=== PATIENT | male | born 1960 | race Caucasian/White ===

== ENCOUNTER 2022-07-05 14:33 | Emergency (ER) | payer OTHER, SELFPAY ==
[2022-07-05 14:46] VITALS: BP 183/85; PULSE 76; RESP 14; TEMP 36.6; O2SAT 98
[2022-07-05 17:07] VITALS: BP 173/85; PULSE 83; RESP 16; TEMP 36.3; O2SAT 100
--- NOTE | 2022-07-05 17:12 | ED.GENADULT ---
HPI - General Adult General Chief complaint: Skin/Abscess/Foreign Body Stated complaint: swallowed chicken bone, unable to eat or drink Time Seen by Provider: 07/05/22 16:41 Source: patient Mode of arrival: ambulatory Limitations: no limitations History of Present Illness HPI narrative: Patient 62 years old white male presents with inability to swallow food or fluid 2 hours prior to arrival to the emergency room, after eating chicken. Patient believes there is chicken/bone stuck in his lower esophagus. History of severe acid reflux, ran out of on resolved few days ago, history of food bolus obstruction years ago resolved after having EGD to pull it out. On arrival to the emergency room patient was able to keep fluids down but it does hurt at the epigastric area during swallowing. Related Data Allergies Allergy/AdvReac Type Severity Reaction Status Date / Time No Known Allergies Allergy Unverified 07/13/18 06:18 Review of Systems Review of Systems: All systems reviewed & are unremarkable except as noted in HPI and below Exam Narrative: General appearance: Well-developed, well-nourished Skin: Normal color Head: Normocephalic, nontraumatic Eyes: Clear conjunctiva ENT: Oropharynx normal, ears normal, nose normal Neck: Supple, nontender Chest and respiratory: Airway patent, no respiratory distress, no accessory muscle use Heart: Regular rate/rhythm Abdomen: Soft, nontender, no organomegaly, quiet bowel sounds Vascular: Normal peripheral pulses, normal capillary refill. Musculoskeletal: Normal range of motion, nontender back Neurologic: Alert and oriented ?3, BINDER OPERATOR is normal as tested, no gross motor deficit Course Reevaluation(s) Reevaluation #1: Patient is able to swallow fluids without any nausea or vomiting. Date: 07/05/22 Time: 17:30 Consultations Consultation #1: Dr. Torres Follow-up with Dr. Austin tomorrow Date: 07/05/22 Time: 17:16 Vital Signs Vital signs: Vital Signs Temperature 36.6 C 07/05/22 14:46 Pulse Rate 76 07/05/22 14:46 Respiratory Rate 14 07/05/22 14:46 Blood Pressure 183/85 H 07/05/22 14:46 Pulse Oximetry 98 07/05/22 14:46 Oxygen Delivery Room Air 07/05/22 14:46 Temperature 36.6 C 07/05/22 14:46 Pulse Rate 76 07/05/22 14:46 Respiratory Rate 14 07/05/22 14:46 Blood Pressure 183/85 H 07/05/22 14:46 Pulse Oximetry 98 07/05/22 14:46 Oxygen Delivery Room Air 07/05/22 14:46 Medical Decision Making Vital Signs Vital Signs: Vital Signs Temperature 36.6 C 07/05/22 14:46 Pulse Rate 76 07/05/22 14:46 Respiratory Rate 14 07/05/22 14:46 Blood Pressure 183/85 H 07/05/22 14:46 Pulse Oximetry 98 07/05/22 14:46 Oxygen Delivery Room Air 07/05/22 14:46 Temperature 36.6 C 07/05/22 14:46 Pulse Rate 76 07/05/22 14:46 Respiratory Rate 14 07/05/22 14:46 Blood Pressure 183/85 H 07/05/22 14:46 Pulse Oximetry 98 07/05/22 14:46 Oxygen Delivery Room Air 07/05/22 14:46 Discharge Plan Discharge Clinical Impression: Acute obstruction of esophagus Patient Disposition: Home, Self-Care Condition: Improved Instructions: Antibiotic Form, Esophageal Foreign Body (ED) Additional Instructions: Call Dr. Austin tomorrow for appointment Prescriptions: New omeprazole 40 mg capsule,delayed release(DR/EC) 40 mg PO DAILY Qty: 30 0RF Follow-up/Referrals: Mango Austin MD [Physician] - 07/05/22 5:28 pm Natalie,Kacy Kat MD [Primary Care Provider] -
[2022-07-05] MEDS: BELLADONNA ALK/PHENOB ELIX 10 ML, MAG HYDROX/ALUMINUM HYD/SIMETH 30 ML, LIDOCAINE HCL 2... PO (17:34)
--- NOTE | 2022-07-05 17:37 | PC.NURSE ---
meds given per order, pt able to swallow medication
[2022-07-05 17:38] VITALS: BP 165/77; PULSE 82; RESP 16; TEMP 36.3; O2SAT 100
== END 2022-07-05 17:56 | disposition home or self-care (01) ==
PROVIDERS: Emergency Provider Emergency Medicine; PCP Internal Medicine
DX: K22.2 Esophageal obstruction (principal)
CPT/HCPCS: 99283; A9270

== ENCOUNTER 2023-03-23 08:27 | Outpatient (CLI) | payer OTHER, SELFPAY | END 2023-03-23 08:28 | disposition home or self-care (01) | LOC: ANHSURGERY 08:31 | PROVIDERS: PCP Internal Medicine; Visit Provider Urology | DX: R97.20 Elevated prostate specific antigen [PSA] (principal); Z01.818 Encounter for other preprocedural examination | CPT/HCPCS: 87086 ==

== ENCOUNTER 2023-03-30 01:15 | Day surgery (SDC) | payer OTHER, SELFPAY ==
[2023-03-22 14:35] VITALS: BMI 33.9
--- NOTE | 2023-03-22 14:46 | PC.NURSE ---
Report to the Outpatient Waiting Room, entrance under the green pavilion located off [facility], at time 6:15 on date 03/30/23. Planned Procedure Time: 8:15. Time changes happen often and if your time is changed the preop area will call you the afternoon before. - You and your visitor will be asked to self-screen and do not enter if you have any COVID symptoms. - A mask is optional within the hospital at this time. Patients may have clear liquids (water, carbonated beverages, clear teas, apple juice) until 3 hours prior to surgery with a maximum of 20 ounces. - No food from midnight until time of surgery Take the following medications with a SIP of water the morning of surgery: METOPROLOL DO NOT STOP ANY OF YOUR OTHER PRESCRIPTION MEDICATIONS PRIOR TO SURGERY EXCEPT THE FOLLOWING Medications to discontinue per physician: VITAMINS/SUPPLEMENTS Date to take last dose: 03/26/23 Please no make-up, nail slovak, hairspray, perfume, deodorant, or body powder the day of surgery. No jewelry (including any body piercings) or valuables the day of surgery, leave them at home. Please take a shower or bath the night before, or the morning of, surgery with an antibacterial soap. Wear comfortable, loose fitting clothing. - Jewelry must be removed prior to entering the operating room. Rings and piercings that are not removed may be cut off. - The hospital will not accept responsibility for valuables. - Please leave all valuables, including medications, at home the day of surgery. If you are going home after surgery, a licensed dumpster driver must drive you home. - NO public transportation without another adult if you receive anesthesia. - We recommend that an adult stay with you for 24 hours following discharge. - We also recommend that you do not drive, make important decision, drink alcoholic beverages, or take any drugs that were not prescribed by your health care provider for at least 24 hours after your discharge time. Follow any additional instructions given to you from your surgeon. If you or anyone in your household have experienced Covid symptoms in the past week, please notify your surgeon or the nurse liaison at the phone number below for possible testing. Telephone instructions given to PT - FAVIO DEL VALLE and asked if any additional questions and then verbalized understanding. Patient advised to call surgeon office or pre surgery nurse liaison [phone] if any additional questions.
--- NOTE | 2023-03-29 09:18 | WPDANESEPPF ---
Anes - Initial Pre Proc Eval Procedure: Operation Date: 03/30/23 08:15 Proposed Procedures p Trans Rectal Ultrasound Guided Prostate Biopsy - Florencio Daniel MD Date/Time: 03/29/23 09:18 Surgeon: Florencio Daniel MD Pre Op Diagnosis: elevated PSA Patient Data Age: 63 Gender: M Height: 1.83 m Weight: 113.4 kg Allergies Allergy/AdvReac Type Severity Reaction Status Date / Time No Known Allergies Allergy Verified 03/30/23 07:23 Home Medications Medication Instructions Recorded Confirmed Type omeprazole 40 mg capsule,delayed 40 mg PO DAILY #30 caps 07/05/22 03/22/23 Rx release allopurinol 300 mg tablet 300 mg PO DAILY 03/22/23 03/22/23 History ergocalciferol (vitamin D2) 1,250 1,250 mcg PO WEEKLY 03/22/23 03/22/23 History mcg (50,000 unit) capsule lisinopril 10 mg tablet 10 mg PO BID 03/22/23 03/22/23 History metoprolol succinate 50 mg 25 mg PO DAILY 03/22/23 03/22/23 History tablet,extended release 24 hr simvastatin 40 mg tablet 40 mg PO DAILY 03/22/23 03/22/23 History tamsulosin 0.4 mg capsule 0.4 mg PO DAILY 03/22/23 03/22/23 History Patient hx anesthesia problems: none Family hx anesthesia problems: none Results Review: All pre-operative results and documents have been reviewed as part of the pre-operative evaluation. [facility] Past Medical History Medical History (Updated 03/29/23 @ 09:19 by Brian Cedillo DO) Asthma Hyperlipidemia Hypertension Surgical History Surgical History (Updated 03/29/23 @ 09:19 by Brian Cedillo DO) History of cervical spinal surgery C5-7 fusion, 02/2023 Social History Social History (Updated 03/30/23 @ 07:27 by Brian Cedillo DO) Smoking status: Never smoker Alcohol intake: current Drinks per week: 30 Alcohol use details: 6 beers/day Substance use: current Substance use type: marijuana Other substance usage details: EDIBLES Living arrangements: alone Spiritual care concerns: No Anes - Eval Final PreProcedure Day of Procedure 03/29/23 09:18 Patient weight: obese Heart: regular rate and rhythm Lungs: clear to auscultation Airway: Mallampati scale class III and special considerations poor extension (C5-7 fusion) Neurological: alert and oriented Last oral intake: >/= 8 hours ASA classification: III Emergent: no Anesthetic plan: proceed Anesthesia type and monitoring: general GIVS and standard monitoring Results Review: All pre-operative results and documents have been reviewed as part of the pre-operative evaluation. Informed Consent: The patient's anesthetic plan and its attendant risks and benefits were discussed with the patient/family/POA. Questions were solicited and answers provided to the satisfaction of the patient/family/POA.
[2023-03-30 07:17] VITALS: BP 142/70; PULSE 64; RESP 14; TEMP 36.8; O2SAT 99
[2023-03-30] MEDS: LACTATED RINGERS 1,000 ML 30 ML IV CONT (07:22)
--- NOTE | 2023-03-30 07:35 | WPDHPUPDATE1 ---
History and Physical Update Update Date/Time: 03/30/23 07:35 History and Physical has been reviewed, including an updated exam of the patient. There are NO changes in the patient's condition. Risks, benefits, and alternatives have been discussed and questions answered. Patient agrees to proceed with procedure. Proceed with Uronav us and prostate biopsy
[2023-03-30] MEDS: ceFAZolin 2 GM/D5W 50 ML 2 GM/50 ML BAG IVPB (08:44)
--- NOTE | 2023-03-30 09:06 | W.PM.PROC2 ---
Procedure Note - Detailed Date of Procedure 03/30/23 Pre-op Diagnosis elevated PSA Post-op Diagnosis Same Procedure Performed Uronav us and prostate biopsy Surgeon Florencio Daniel MD Anesthesia General Description of Procedure Patient was taken to the operative suite correctly identified. Once anesthesia was obtained was placed in decubitus position. Transrectal ultrasound probe was inserted the rectum. The MRI image had been fused with the ultrasound image. We located the region of interest took 3 cores from that. We then took 12 cores in a standard fashion. Patient tolerated procedure well without any complications and is taken recovery stable condition. He is to call for path results in a week if he has not heard from us. This can placed to taken of this patient. Please send a copy to my office Drains No Packing No Pathology Yes Complications No immediate complications Condition Stable Disposition PACU
[2023-03-30 09:16] VITALS: BP 126/75; PULSE 67; RESP 12; TEMP 36.2; O2SAT 100
[2023-03-30 09:30] VITALS: BP 125/67; PULSE 71; RESP 12; O2SAT 96
[2023-03-30 09:45] VITALS: BP 119/69; PULSE 61; RESP 12; O2SAT 99
[2023-03-30 09:46] VITALS: BP 125/73; PULSE 56; RESP 14
[2023-03-30 10:16] VITALS: BP 127/63; PULSE 57; RESP 16
== END 2023-03-30 10:29 | disposition home or self-care (01) ==
PROVIDERS: PCP Internal Medicine; Visit Provider Urology
PROC: (CPT 55700; principal; 2023-03-30 08:15)
DX: C61 Malignant neoplasm of prostate (principal); I10 Essential (primary) hypertension; E78.5 Hyperlipidemia, unspecified; Z98.1 Arthrodesis status; F12.90 Cannabis use, unspecified, uncomplicated; E66.9 Obesity, unspecified; Z68.31 Body mass index [BMI] 31.0-31.9, adult
CPT/HCPCS: 55700; 76872; 87086; G0416; J0690; J1100; J2250; J2405; J2704; J3010; J7120

== ENCOUNTER 2023-04-21 10:54 | Outpatient (CLI) | payer OTHER, SELFPAY ==
--- NOTE | ~2023-04-21 | PE_ITS ---
EXAMINATION: PET_PETPSMAST_PT DATE: 04/21/2023 13:21 INDICATION: Malignant neoplasm of prostate. TECHNIQUE: 8.753 mCi of piflufolastat F-18 was administered intravenously. Low dose computed tomograp hy (CT) images were acquired from the base of the brain to the proximal thighs for attenuation correc tion and anatomic localization. Automated exposure control was employed. Dose-length product (DLP) wa s 1030 mGy-cm. Positron emission tomography (PET) images were acquired in the same distribution. COMPARISON: None FINDINGS: Head/neck: There are no pathologically enlarged lymph nodes. There are changes of anterior fusion pro cedure in cervical spine. Chest: There is no pneumonia or pleural effusion. There is a moderate-sized sliding hiatal hernia. Th e heart size is normal. No pericardial effusion. There are coronary artery calcifications. There are no pathologically enlarged lymph nodes. Abdomen/pelvis/proximal thighs: There is diffuse hepatic steatosis. The gallbladder, spleen, pancreas , adrenal glands, and kidneys are normal. The prostate is normal in size. There is increased activity in the peripheral zone on the left with maximum SUV of 16.3. There is diverticulosis of the colon wi thout evidence of diverticulitis. There are no dilated loops of bowel. The appendix is normal. There are no pathologically enlarged lymph nodes. There is no free intraperitoneal fluid. There is a total right hip arthroplasty. 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 There is a benign bone island in left ilium. IMPRESSION: 1. Increased activity in the left peripheral zone of the prostate, consistent with primary malignancy . No evidence of metastatic disease. Reviewed, dictated and finalized at location A. IMPRESSION: 1. Increased activity in the left peripheral zone of the prostate, consistent w ith primary malignancy. No evidence of metastatic disease.
== END 2023-04-21 10:55 | disposition home or self-care (01) ==
PROVIDERS: PCP Internal Medicine; Visit Provider Urology
DX: C61 Malignant neoplasm of prostate (principal)
CPT/HCPCS: 78815; A9595

== ENCOUNTER 2023-06-08 09:24 | Observation (INO) | payer OTHER, SELFPAY ==
[2023-06-08] VITALS (10 sets, daily range): BP systolic 117–135; BP diastolic 59–99; PULSE 67–80; RESP 15–19; TEMP 36.8–38; O2SAT 97–100
--- NOTE | ~2023-06-08 | CT_ITS ---
EXAMINATION: CT abdomen pelvis w con DATE: 06/08/2023 10:59 INDICATION: Rectal pain and weakness TECHNIQUE: Computed tomography (CT) of the abdomen and pelvis was performed with 100 mL Omnipaque-350 intravenous contrast. Automated exposure control and iterative reconstruction technique were employe d. The dose-length product was 1349.18 mGy-cm. COMPARISON: None FINDINGS: Mild compressive atelectasis at the medial aspect bilateral lower lobes along the margins of a modera te-sized sliding-type hiatal hernia. Heart size is normal. No pericardial or pleural effusion. Diffus e hepatic steatosis. Gallbladder, spleen, pancreas, bilateral adrenal glands and kidneys are normal. Small bowel and appendix are normal. There are few scattered colonic diverticula without adjacent inf lammatory stranding to suggest diverticulitis. There are small metallic densities in the region of th e prostate most likely brachytherapy seeds or surgical clips related to prior prostatectomy. There is a region of hypoattenuation situated in the fat between the posterior margin of the prostate in the anterior wall of the rectum likely representing a hydrogel spacer tube replacement prior to radiation treatment of the prostate. There is mild wall thickening along the anterior wall of the rectum consi stent with proctitis along with new nonspecific stranding in the retroperitoneal fat surrounding the rectum and distal sigmoid colon. No free intraperitoneal gas or fluid. No pathologically enlarged abd ominal or pelvic lymphadenopathy. Horizontal band of mild skin thickening and stranding in the underl fátima subcutaneous fat of the left and right sides of the umbilicus which could be due to prior trauma or cellulitis of indeterminate etiology. No pathologically enlarged abdominal or pelvic lymphadenopa thy. Right total hip arthroplasty. 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 Mild to moderate ost eoarthritis at the left hip. IMPRESSION: 1. Mild proctitis with some surrounding inflammatory stranding in the retroperitoneal fat surrounding the rectum and distal sigmoid colon. Postoperative changes at the prostate and placement of a likely hydrogel spacer the fat between the prostate and rectum with placed prior to radiation therapy sugge sting the proctitis could be related to radiation treatment or infectious/inflammatory change seconda ry to the hydrogel placement. Correlate with clinical history. 2. Osteonecrosis at the left femoral head some collapse of the articular cortex. Reviewed, dictated and finalized at location A. IMPRESSION: 1. Mild proctitis with some surrounding inflammatory stranding in the retroperi toneal fat surrounding the rectum and distal sigmoid colon. Postoperative sofia es at the prostate and placement of a likely hydrogel spacer the fat between th e prostate and rectum with placed prior to radiation therapy suggesting the pro ctitis could be related to radiation treatment or infectious/inflammatory sofia e secondary to the hydrogel placement. Correlate with clinical history. 2. 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
--- NOTE | ~2023-06-08 | XR_ITS ---
Clinical Indication: Weakness AP and lateral views of the chest: Comparison: 01/20/2017 Findings: The lungs are clear, without evidence of focal consolidation or pleural effusion. Cardiome diastinal silhouette is within normal limits. Cervical spine fixation hardware is present. Impression: Clear lungs. Reviewed, dictated and finalized at location . Impression: Clear lungs.
--- NOTE | 2023-06-08 09:56 | ECG_ITS ---
Measurements Intervals [place] Rate: 68 P: 15 CA: 156 QRS: 31 QRSD: 87 T: 13 QT: 356 QTc: 381 Interpretive Statements SINUS RHYTHM WITH MARKED SINUS ARRHYTHMIA BASELINE ARTIFACT- I, AVR, AVL NORMAL ECG COMPARED TO ECG 01/25/2019 08:43:14 SINUS ARRHYTHMIA NOW PRESENT Electronically Signed On 06-08-2023 10:06:20 CDT by Madi Martinez D.O.
[2023-06-08] MEDS: SODIUM CHLORIDE 0.9% IV 1,000 ML 999 ML IV CONT (10:17)
[2023-06-08 10:20] LABS: Basophils Absolute Auto 0.1 K/mm3 (0.0-0.1); Basophils Percent Auto 0.4 % (0.2-1.2); Eosinophils Percent Auto 0.3 % (0-4.4); Hematocrit 41.3 % (42.0-52.0); Hemoglobin 14.3 g/dL (14.0-18.0); Immature Granulocyte Absolute 0.05 K/mm3 (0.00-0.031); Immature Granulocyte Percent A 0.4 % (0-0.5); Lymphocytes Absolute Auto 2.87 K/mm3 (0.9-3.2); Lymphocytes Percent Auto 20.6 % (18.3-44.2); Mean Corpuscular HGB Conc 34.6 g/dl (32-36); Mean Corpuscular Hemoglobin 32.9 pg (26-34); Mean Corpuscular Volume 94.9 fl (80-100); Mean Platelet Volume 10.9 fl (7.4-10.4); Monocytes Absolute Auto 0.9 K/mm3 (0.1-0.6); Monocytes Percent Auto 6.3 % (2.6-8.5); Platelet Count Result 213 k/mm3 (150-375); Red Blood Count 4.35 M/mm3 (4.6-6.20); Red Cell Distribution Width 12.9 % (11.5-14.5); White Blood Count 13.9 K/mm3 (4.5-10.0)
[2023-06-08 10:34] LABS: Lactic Acid Reflex 1.1 mmol/L (0.7-2.0)
[2023-06-08 10:36] LABS: Alanine Aminotransferase 26 U/L (6-50); Albumin Level 4.4 g/dL (3.5-5.1); Alkaline Phosphatase 77 U/L (38-126); Anion Gap 10 mmol/L (8-16); Aspartate Amino Transferase 20 U/L (17-59); Bilirubin,Total 1.3 mg/dL (0.2-1.3); Blood Urea Nitrogen 9 mg/dL (9-20); CRP 8.6 mg/dL (<1.0); Calcium 9.4 mg/dL (8.4-10.2); Carbon Dioxide 25 mmol/L (22-30); Chloride 99 mmol/L (98-107); Estimated Glomerular Filt Rate > 60; Glucose 121 mg/dL (65-110); Potassium 3.7 mmol/L (3.4-5.0); Sodium 134 mmol/L (137-145)
[2023-06-08 10:42] LABS: Partial Thromboplastin Time 25.9 SECONDS (22.3-36.8); Prothrombin Time 14.2 Seconds (11.1-14.7)
--- NOTE | 2023-06-08 10:42 | ED.WEAKNESS ---
HPI - Weakness General Chief complaint: Weakness Stated complaint: weak, dizzy Time Seen by Provider: 06/08/23 09:38 Source: patient, RN notes reviewed and old records reviewed Mode of arrival: ambulatory Limitations: no limitations History of Present Illness HPI Narrative: This is a 63 year old male with history of prostate Cancer who presents for evaluation of rectal pain and weakness. Patient states he had markers placed in his prostate almost 3 weeks ago. He reports he had severe rectal pain 7 days after procedure so he was placed on pain medication. He reports this rectal pain initially resolved but it returned a couple days ago. He reports weakness, intermittent sweating over the past 2 days. He reports he has not energy and he could not get himself up yesterday. He has not eaten in 2 days. 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 He states he is passing gas but he has not had bowel movement in a while. He denies chest pain or shortness of breath. He reports mild cough for a couple days. Related Data Home Medications Medication Instructions Recorded Confirmed allopurinol 300 mg tablet 300 mg PO DAILY 03/22/23 06/08/23 ergocalciferol (vitamin D2) 1,250 1,250 mcg PO WEEKLY 03/22/23 06/08/23 mcg (50,000 unit) capsule lisinopril 10 mg tablet 10 mg PO BID 03/22/23 06/08/23 metoprolol succinate 50 mg 25 mg PO DAILY 03/22/23 06/08/23 tablet,extended release 24 hr simvastatin 40 mg tablet 40 mg PO DAILY 03/22/23 06/08/23 albuterol sulfate 90 mcg/actuation 2 puff inhalation Q4H PRN 06/08/23 06/08/23 aerosol inhaler Shortness Of Breath Or Wheezing Allergies Allergy/AdvReac Type Severity Reaction Status Date / Time No Known Allergies Allergy Verified 06/08/23 14:49 Review of Systems Constitutional: Constitutional: Reports fatigue and Reports weakness Cardiovascular: Cardiovascular: Denies syncope, Denies rapid heart rate, Denies irregular heart rhythm, Denies leg edema and Denies dyspnea Respiratory: Respiratory: Denies chest congestion, Reports cough, Denies hemoptysis, Denies excessive phlegm production and Denies dyspnea Gastrointestinal: Gastrointestinal: Denies abdominal pain, Reports bloating, Denies hematochezia, Reports constipation, Denies diarrhea and Denies vomiting Genitourinary: Genitourinary: Denies hematuria, Denies dysuria, Denies penile discharge and Denies testicular pain Musculoskeletal: Musculoskeletal: Denies joint swelling, Denies loss of height and Denies muscle weakness Neurologic: Denies syncope, Denies focal weakness and Denies weakness [facility] Past Medical History Medical History (Updated 06/08/23 @ 18:37 by Marlen Bull MD) Asthma Esophageal stricture Gastroesophageal reflux disease Gout Hyperlipidemia Hypertension Prostate cancer (03/2023) Surgical History Surgical History History of cervical spinal surgery (02/2023) C5-C7 fusion. History of meniscectomy of right knee History of prostate biopsy (03/2023) History of tonsillectomy History of total right hip arthroplasty (06/2018) History of vein stripping Family History Family History Mother Peripheral artery disease Hypertension Father Epilepsy Other Colon polyp Social History Social History Social History: Surrogate medical decision maker: Melissa Cisneros, mother. Code status: Full code. Smoking status: Never smoker Smokeless tobacco user: chewing tobacco Alcohol intake: current Drinks per week: 30 Alcohol use details: 6 beers/day Substance use: current Substance use type: other Other substance usage details: edibles-THC Lack of Transportation: No Lack of Food: Never True Current Housing: I Have Housing Concerned About Future Housing: No Difficulty Paying Gas/Electric Bills: No D
[2023-06-08 10:43] LABS: Appearance Urine Clear (Clear); Bilirubin Urine Negative (Negative); Blood Urine Negative (Negative); Color Urine Dark Yellow (Yellow); Glucose Urine UA Negative (Negative); Ketones Urine Negative (Negative); Leukocyte Esterase Ur Negative LEU/UL (Negative); Nitrate Urine Negative (Negative); Protein Urine Negative (Negative); Urobilinogen Urine 0.2 mg/dL (<2.0); pH Urine 5.5 (5.0-9.0)
[2023-06-08 10:44] LABS: Add Urine Microscopic? NO
--- NOTE | 2023-06-08 13:27 | WPDURCON ---
Assessment and Plan Assessment and plan (1) Prostatitis: Code(s): N41.9 - Inflammatory disease of prostate, unspecified Status: Acute Assessment and Plan: Start Rocephin, blood cultures obtained. Urinalysis normal. Patient has a low grade fever and leukocytosis at this time as well as evidence of fat stranding surrounding the prostate s/p gold seed placement two weeks ago. Will plan to continue IV antibiotics pending culture results and tailor antibiotics per culture sensitivity. Monitor WBC and creatinine. (2) Prostate cancer: Onset Date: 03/2023 Code(s): C61 - Malignant neoplasm of prostate Status: Acute Assessment and Plan: The patient did not f/u after his injection of Firmagon as requested on 05/28/23 for blood work and an injection of Camcevi in the office. We will repeat a PSA and Testosterone while admitted and plan to give another injection once discharged. Urology Consult Note HPI Date Seen: 06/08/23 Time Seen: 13:27 Primary Care Provider: Kacy Estrada, Consult Narrative Reason for consult: Prostatitis s/p Gold Seed Placement Narrative: Oscar Ag is a 63 year old male who presented to the ER today with worsening symptoms of chills, diaphoresis, rectal pain, weakness, dizziness, feeling of constipation and incomplete emptying of the bladder that started 3 days ago and has worsened. He had a gold seed placement for prostate cancer radiation treatment on 05/26/[address] Morales and had pain after that for 7 days but it resolved after that and then started again a few days ago and has been much worse. His WBC is 13.9, creatinine 0.90, patient is febrile but vitals are otherwise stable. He had a CT on admission showing mild proctitis with some surrounding inflammatory stranding in the retroperitoneal fat surrounding the rectum and distal sigmoid colon. Postoperative changes at the prostate and placement of a likely hydrogel spacer the fat between the prostate and rectum with placed prior to radiation therapy suggesting the proctitis could be related to radiation treatment or infectious/inflammatory change secondary to the hydrogel placement. He states he is passing gas and urinating, he denies hematuria, hematochezia, flank pain or abdominal pain, nausea or vomiting. He is having low back pain as well. His initial diagnosis of prostate cancer was via biopsy at a PSA of 6.5, showing 6 fo 15 cores being positive from the prostate and [place] score of 8. After a cancer consultation he opted for prostate radiation and ADT therapy for 18-36 months pending toleration. He had one injection of Firmagon 240mg one month ago but did not follow up for his second injection of Camcevi 42mg as planned one week ago for unknown reasons, which would have also included blood work to check his PSA and Testosterone. Review of Systems Cardiovascular: Cardiovascular: Denies chest pain Respiratory: Respiratory: Reports no additional respiratory complaints Gastrointestinal: Gastrointestinal: Denies abdominal pain, Reports constipation, Denies nausea and Denies vomiting Genitourinary: Genitourinary: Denies hematuria, Denies dysuria, Denies flank pain, Denies urinary frequency, Reports urinary hesitancy, Denies urinary incontinence and Denies urinary urgency [facility] Past Medical History Medical History (Updated 06/08/23 @ 15:50 by Nessa Evans APRN) Asthma Esophageal stricture Gastroesophageal reflux disease Gout Hyperlipidemia Hypertension Prostate cancer (03/2023) Surgical History Surgical History History of cervical spinal surgery (02/2023) C5-C7 fusion. History of meniscectomy of right knee History of prostate biopsy (03/2023) History of tonsillectomy History of total right hip arthroplasty (06/2018) History of vein stripping Family History Family History Mother Peripheral a
[2023-06-08] MEDS: PIPERACILLN/TAZ 3.375GM/NS50ML 3.375 GM/50 ML BAG IVPB ×3 (13:33→23:13)
--- NOTE | 2023-06-08 14:55 | PC.NURSE ---
patient stated medication list based on memory but will have family provide written list at later date
--- NOTE | 2023-06-08 15:24 | PM.IMHP ---
H&P: HPI History of Present Illness Date/Time: 06/08/23 14:30 Chief Complaint: Weakness. Narrative: This is a 63-year-old male with prostate cancer, hypertension, hyperlipidemia, GERD, and gout who presented to the emergency department via private vehicle from home for evaluation of weakness. The patient provides the following history. 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 He did okay initially but he developed rectal pain 7 days ago and he was started on pain medications with improvement. Several ago the rectal pain returned and he has been feeling unwell since that time with progressive weakness, intermittent sweats, decreased appetite, and poor oral intake. He reports having almost no energy and has not been able to really even get himself up out of the chair for the last day. His last bowel movement was 4 days ago and he reports that it was quite painful. This stool was loose and not difficult to pass. He has had tenesmus since that time. Temperature in the ED was 100.4? and remaining vital signs were stable. Labs were significant for WBC count of 13.9 sodium 134, creatinine 0.70, CRP 0.6. Urine was unremarkable. CT of the abdomen and pelvis showed mild proctitis with inflammatory stranding in the retroperitoneal fat surrounding the prostate, rectum, and distal sigmoid colon. He was started on Zosyn in the ED and he is being admitted in this setting for further antibiotics and urology consultation. Later in the evening the patient reported having difficulties urinating and bladder scan showed greater than 600 mL of urine in the bladder. Straight cath x1 yielded 650 mL of darker yellow urine. Review of Systems Review of Systems: Twelve systems were reviewed and are negative except for as per HPI. [facility] Past Medical History Medical History (Updated 06/09/23 @ 00:17 by Jaye Barbosa PA-C) Asthma Esophageal stricture Gastroesophageal reflux disease Gout Hyperlipidemia Hypertension Prostate cancer (03/2023) Surgical History Surgical History History of cervical spinal surgery (02/2023) C5-C7 fusion. History of meniscectomy of right knee History of prostate biopsy (03/2023) History of tonsillectomy History of total right hip arthroplasty (06/2018) History of vein stripping Family History Family History Mother Peripheral artery disease Hypertension Father Epilepsy Other Colon polyp Social History Social History Social History: Surrogate medical decision maker: Melissa Cisneros, mother. Code status: Full code. Smoking status: Never smoker Smokeless tobacco user: chewing tobacco Alcohol intake: current Drinks per week: 30 Alcohol use details: 6 beers/day Substance use: current Substance use type: other Other substance usage details: edibles-THC Lack of Transportation: No Lack of Food: Never True Current Housing: I Have Housing Concerned About Future Housing: No Difficulty Paying Gas/Electric Bills: No Difficulty Paying for Meds: No Currently Unemployed: No Education: High School Diploma/GED Difficulty w/ Childcare or Family Care: No Living arrangements: alone Spiritual care concerns: No Meds Home Medications and Allergies Home Medications Medication Instructions Recorded Confirmed Type omeprazole 40 mg capsule,delayed 40 mg PO DAILY #30 caps 07/05/22 06/08/23 Rx release allopurinol 300 mg tablet 300 mg PO DAILY 03/22/23 06/08/23 History ergocalciferol (vitamin D2) 1,250 1,250 mcg PO WEEKLY 03/22/23 06/08/23 History mcg (50,000 unit) capsule lisinopril 10 mg tablet 10 mg PO BID 03/22/23 06/08/23 History metoprolol succinate 50 mg 25 mg PO DAILY 03/22/23
[2023-06-08] MEDS: HYDROcodone/acetaminophen (*CRX) 5-325 MG TABLET 1 TAB PO ×2 (16:10→22:12)
[2023-06-08] MEDS: lisinopriL 10 MG TABLET PO (16:11)
[2023-06-08] MEDS: SODIUM CHLORIDE 0.9% IV 1,000 ML 125 ML IV CONT (16:12)
[2023-06-08] MEDS: LIDOCAINE HCL 2% GEL UROJET 10 ML PKG MUCOUS MEM (23:00)
[2023-06-09] MEDS: SODIUM CHLORIDE 0.9% IV 1,000 ML 125 ML IV CONT ×3 (02:15→23:18)
[2023-06-09 03:07] LABS: Prostate Specific Antigen 1.8 ng/mL (< OR = 4.0)
[2023-06-09] MEDS: HYDROcodone/acetaminophen (*CRX) 5-325 MG TABLET 1 TAB PO ×4 (05:01→23:15)
[2023-06-09] MEDS: PIPERACILLN/TAZ 3.375GM/NS50ML 3.375 GM/50 ML BAG IVPB (05:32)
[2023-06-09 05:39] LABS: Basophils Absolute Auto 0.1 K/mm3 (0.0-0.1); Basophils Percent Auto 0.5 % (0.2-1.2); Eosinophils Absolute Auto 0.1 K/mm3 (0-0.3); Eosinophils Percent Auto 0.9 % (0-4.4); Hematocrit 39.2 % (42.0-52.0); Hemoglobin 13.2 g/dL (14.0-18.0); Immature Granulocyte Absolute 0.06 K/mm3 (0.00-0.031); Immature Granulocyte Percent A 0.5 % (0-0.5); Lymphocytes Absolute Auto 2.73 K/mm3 (0.9-3.2); Lymphocytes Percent Auto 20.5 % (18.3-44.2); Mean Corpuscular HGB Conc 33.7 g/dl (32-36); Mean Corpuscular Hemoglobin 32.9 pg (26-34); Mean Corpuscular Volume 97.8 fl (80-100); Monocytes Absolute Auto 0.7 K/mm3 (0.1-0.6); Monocytes Percent Auto 5.5 % (2.6-8.5); Neutrophils Absolute Auto 9.6 K/mm3 (1.3-6.7); Neutrophils Percent Auto 72.1 % (45.5-73.1); Platelet Count Result 193 k/mm3 (150-375); Red Blood Count 4.01 M/mm3 (4.6-6.20); Red Cell Distribution Width 12.9 % (11.5-14.5); White Blood Count 13.3 K/mm3 (4.5-10.0)
[2023-06-09 05:57] LABS: Alanine Aminotransferase 25 U/L (6-50); Alkaline Phosphatase 79 U/L (38-126); Anion Gap 9 mmol/L (8-16); Aspartate Amino Transferase 25 U/L (17-59); Bilirubin,Total 1.2 mg/dL (0.2-1.3); Blood Urea Nitrogen 8 mg/dL (9-20); Calcium 8.6 mg/dL (8.4-10.2); Carbon Dioxide 22 mmol/L (22-30); Chloride 101 mmol/L (98-107); Estimated Glomerular Filt Rate > 60; Glucose 104 mg/dL (65-110); Magnesium 1.8 mg/dL (1.6-2.3); Potassium 3.8 mmol/L (3.4-5.0); Sodium 132 mmol/L (137-145)
[2023-06-09 06:00] VITALS: BP 109/64; PULSE 62; RESP 18; TEMP 36.8; O2SAT 98
--- NOTE | 2023-06-09 07:18 | PM.IMPN ---
Progress Note: A&P Assessment and Plan (1) Acute proctitis: Code(s): K62.89 - Other specified diseases of anus and rectum Status: Acute Assessment and Plan: Prostate cancer with recent gold seed placement -now with presumed prostatitis and proctitis per imaging -urology consulted, appreciate recs -initially started on zosyn, switching to rocephin per urology recs -blood cultures pending -U/A negative -prn pain medications with [place] and tylenol (2) Prostatitis: Code(s): N41.9 - Inflammatory disease of prostate, unspecified Status: Acute (3) Urinary retention: Code(s): R33.9 - Retention of urine, unspecified Status: Acute Assessment and Plan: -required intermittent catheterization 06/08 with UOP 650 ml -bladder scan q 6 hours and prn -if requires more than 3 intermittent catheterizations, will place merlos (4) Hypertension: Code(s): I10 - Essential (primary) hypertension Status: Acute Assessment and Plan: -Lisinopril 10 mg PO BID, Metoprolol Succinate 25 mg PO daily restarted here -109/128/59-64 Plan Continue IV antibiotics, trend leukocytosis Subjective Date/time seen: 06/09/23 07:18 Interval history: HPI obtained from chart: This is a 63-year-old male with prostate cancer, hypertension, hyperlipidemia, GERD, and gout who presented to the emergency department via private vehicle from home for evaluation of weakness. The patient provides the following history. He had a prostate biopsy on 03/30/2023 which was positive for acinar adenocarcinoma (Jackie score 4+3) and he underwent gold seed placement approximately 3 weeks ago. He did okay initially but he developed rectal pain 7 days ago and he was started on pain medications with improvement. Several ago the rectal pain returned and he has been feeling unwell since that time with progressive weakness, intermittent sweats, decreased appetite, and poor oral intake. He reports having almost no energy and has not been able to really even get himself up out of the chair for the last day. His last bowel movement was 4 days ago and he reports that it was quite painful. This stool was loose and not difficult to pass. He has had tenesmus since that time. Temperature in the ED was 100.4? and remaining vital signs were stable. Labs were significant for WBC count of 13.9 sodium 134, creatinine 0.70, CRP 0.6. Urine was unremarkable. CT of the abdomen and pelvis showed mild proctitis with inflammatory stranding in the retroperitoneal fat surrounding the prostate, rectum, and distal sigmoid colon. He was started on Zosyn in the ED and he is being admitted in this setting for further antibiotics and urology consultation. Later in the evening the patient reported having difficulties urinating and bladder scan showed greater than 600 mL of urine in the bladder. Straight cath x1 yielded 650 mL of darker yellow urine. Interval history: 06/09: Patient seen this morning resting in bed. He says he is feeling better because he is now able to void spontaneously. He still has rectal pain. He denies symptoms of fever overnight. He also complains of a dry cough. Review of Systems Review of Systems: All systems reviewed & are unremarkable except as noted in HPI and below Exam Narrative: General: well-nourished, well-appearing 63 [id number], sitting up in bed, comfortable, NARD Neuro: awake, alert and oriented x4, speech clear, no focal neuro deficits noted HEENMT: normocephalic, atraumatic, EOMI, sclerae anicteric, moist oral mucosa Respiratory: Clear to auscultation bilaterally without crackles, rhonchi or wheezes, nonlabored breathing Cardio: regular rate, regular rhythm with S1-S2 Abdomen: nondistended, normoactive bowel sounds, soft, nontender to palpation Extremities: no edema, erythema, or tenderness to palpation, DP pulses 2+ bilaterally Skin: no rashes or lesions, warm and dry Psych: appropriate mood and affect
[2023-06-09 09:24] VITALS: PULSE 60
[2023-06-09] MEDS: lisinopriL 10 MG TABLET PO ×2 (09:24→17:25)
[2023-06-09] MEDS: SIMVASTATIN 20 MG TABLET 40 MG PO (09:24)
[2023-06-09] MEDS: ENOXAPARIN 40 MG/0.4 ML SYRINGE SUB-Q (09:24)
[2023-06-09] MEDS: allopurinoL 300 MG TABLET PO (09:24)
[2023-06-09] MEDS: METOPROLOL SUCCINATE EXT REL 25 MG TABCR PO (09:24)
[2023-06-09] MEDS: PANTOPRAZOLE 40 MG TABLET PO (09:24)
--- NOTE | 2023-06-09 09:54 | WPDUROPN2 ---
Progress Note: A&P Assessment and Plan (1) Urinary retention: Code(s): R33.9 - Retention of urine, unspecified Status: Acute Assessment and Plan: Agree with plan to bladder scan q 6 and straight cath PRN. If >3 straight catheterizations are needed, ok to place merlos catheter. Start Flomax. Likely related to BPH/prostate edema. (2) Acute proctitis: Code(s): K62.89 - Other specified diseases of anus and rectum Status: Acute Assessment and Plan: Continue IV antibiotics, monitor WBC and for fever, tailor antibiotics to blood culture sensitivity. (3) Prostate cancer: Onset Date: 03/2023 Code(s): C61 - Malignant neoplasm of prostate Status: Acute Assessment and Plan: Patient will need to schedule a f/u in the office as soon as discharge takes place for a Camce[place] injection. PSA 1.8 Testosterone pending at this time. (4) Prostatitis: Code(s): N41.9 - Inflammatory disease of prostate, unspecified Status: Acute Subjective Subjective Date/Time Seen: 06/09/23 09:54 Principal diagnosis: Prostatitis/Proctitis Interval history: Patient is slightly improved today. Afebrile, denies chills or diaphoresis. He is urinating better this morning. He did have to be straight catheterized last night which resulted in 650cc of urine. He also managed to have a small BM. He notes less pelvic pressure. WBC is stable, creatinine 0.60. He does state he is straining to urinate and having hesitancy as well. Review of Systems Cardiovascular: Cardiovascular: Reports no additional cardiovascular complaints Respiratory: Respiratory: Reports no additional respiratory complaints Gastrointestinal: Gastrointestinal: Denies abdominal pain, Reports constipation, Denies nausea and Denies vomiting Genitourinary: Genitourinary: Denies hematuria, Denies dysuria, Denies flank pain, Denies urinary frequency, Reports urinary hesitancy, Denies urinary incontinence and Denies urinary urgency Exam Const: General: cooperative and comfortable Resp: Effort & Inspection: normal respiratory effort Cardio: Rate: regular rate GI: GI Palp: Yes Soft to palpation and No Tenderness to palpation present (GI) : General: Yes bladder normal to palpation and Yes no CVA tenderness Extrem: Right lower extremity: no edema Left lower extremity: no edema Objective Data Vital Signs Vital Signs: Vital Signs - 24 hr 06/08/23 10:41 06/08/23 10:43 06/08/23 10:44 Temperature Pulse Rate 67 71 Respiratory Rate Blood Pressure 119/73 119/73 135/81 Pulse Oximetry Oxygen Delivery 06/08/23 10:44 06/08/23 10:06 06/08/23 10:17 Temperature Pulse Rate 80 74 76 Respiratory Rate 19 18 Blood Pressure 124/81 117/73 121/84 Pulse Oximetry 98 97 Oxygen Delivery 06/08/23 11:01 06/08/23 13:34 06/08/23 14:25 Temperature 100.4 F H Pulse Rate 69 71 72 Respiratory Rate 15 17 17 Blood Pressure 130/67 130/71 121/66 Pulse Oximetry 100 98 99 Oxygen Delivery 06/08/23 17:17 06/08/23 19:22 06/09/23 06:00 Temperature 98.3 F 98.2 F Pulse Rate 75 62 Respiratory Rate 18 18 Blood Pressure 128/59 L 109/64 Pulse Oximetry 98 98 Oxygen Delivery Room Air 06/09/23 09:24 Temperature Pulse Rate 60 Respiratory Rate Blood Pressure Pulse Oximetry Oxygen Delivery Intake/Output Intake/Output: Intake & Output 06/06/23 06/07/23 06/08/23 06/09/23 23:59 23:59 23:59 23:59 Intake Total 1372 1490 Output Total 650 Balance 722 1490 Meds/Results Medications: Active Medications Generic Name Dose Route Start Last Admin Trade Name Freq PRN Reason Stop Dose Admin Acetaminophen 650 mg 06/08/23 13:12 Acetaminophen 325 Mg Tablet PO Q4H PRN Mild Pain (1-3) or Fever Hydrocodone Bitart/Acetaminophen 1 tab 06/08/23 15:44 06/09/23 05:01 Hydrocodone/Acetaminophen (*Crx) 5-325 Mg Tablet PO 1 tab Q6H PRN Administration Pain Rated
[2023-06-09] MEDS: TAMSULOSIN HCL 0.4 MG CAPSULE PO (11:04)
[2023-06-09 14:02] VITALS: BP 112/61; PULSE 65; RESP 16; TEMP 36.6; O2SAT 100
[2023-06-09 17:24] VITALS: TEMP 37.2
[2023-06-09] MEDS: ACETAMINOPHEN 325 MG TABLET 650 MG PO (17:24)
[2023-06-09 18:24] VITALS: TEMP 37.3
[2023-06-09] MEDS: polyethylene glycoL 3350 17 GM POWD.PACK PO (18:30)
[2023-06-09 19:24] VITALS: BP 145/74; PULSE 80; RESP 18; TEMP 36.2; O2SAT 98
[2023-06-10] MEDS: HYDROcodone/acetaminophen (*CRX) 5-325 MG TABLET 1 TAB PO (05:00)
[2023-06-10 06:00] VITALS: BP 119/64; PULSE 69; RESP 18; TEMP 37; O2SAT 100
[2023-06-10 06:00] LABS: Basophils Percent Auto 0.4 % (0.2-1.2); Eosinophils Absolute Auto 0.2 K/mm3 (0-0.3); Eosinophils Percent Auto 1.9 % (0-4.4); Hemoglobin 11.9 g/dL (14.0-18.0); Immature Granulocyte Absolute 0.03 K/mm3 (0.00-0.031); Immature Granulocyte Percent A 0.3 % (0-0.5); Lymphocytes Absolute Auto 2.27 K/mm3 (0.9-3.2); Lymphocytes Percent Auto 23.4 % (18.3-44.2); Mean Corpuscular HGB Conc 33.1 g/dl (32-36); Mean Corpuscular Hemoglobin 32.5 pg (26-34); Mean Corpuscular Volume 98.4 fl (80-100); Mean Platelet Volume 11.5 fl (7.4-10.4); Monocytes Absolute Auto 0.5 K/mm3 (0.1-0.6); Monocytes Percent Auto 5.6 % (2.6-8.5); Neutrophils Absolute Auto 6.7 K/mm3 (1.3-6.7); Neutrophils Percent Auto 68.4 % (45.5-73.1); Platelet Count Result 193 k/mm3 (150-375); Red Blood Count 3.66 M/mm3 (4.6-6.20); Red Cell Distribution Width 12.7 % (11.5-14.5); White Blood Count 9.7 K/mm3 (4.5-10.0)
[2023-06-10 06:16] LABS: Anion Gap 9 mmol/L (8-16); Blood Urea Nitrogen 7 mg/dL (9-20); Calcium 8.5 mg/dL (8.4-10.2); Carbon Dioxide 24 mmol/L (22-30); Chloride 102 mmol/L (98-107); Estimated CRCL calculation 137 ml/min; Estimated Glomerular Filt Rate > 60; Glucose 105 mg/dL (65-110); Potassium 3.7 mmol/L (3.4-5.0); Sodium 135 mmol/L (137-145)
[2023-06-10 08:32] VITALS: PULSE 72
[2023-06-10] MEDS: lisinopriL 10 MG TABLET PO (08:32)
[2023-06-10] MEDS: ENOXAPARIN 40 MG/0.4 ML SYRINGE SUB-Q (08:32)
[2023-06-10] MEDS: TAMSULOSIN HCL 0.4 MG CAPSULE PO (08:32)
[2023-06-10] MEDS: allopurinoL 300 MG TABLET PO (08:32)
[2023-06-10] MEDS: LORATADINE 10 MG TABLET PO (08:32)
[2023-06-10] MEDS: METOPROLOL SUCCINATE EXT REL 25 MG TABCR PO (08:32)
[2023-06-10] MEDS: polyethylene glycoL 3350 17 GM POWD.PACK PO (08:33)
--- NOTE | 2023-06-10 08:45 | PC.NURSE ---
call to pharmacy for missing doses of protonix and simvastatin
[2023-06-10] MEDS: SIMVASTATIN 20 MG TABLET 40 MG PO (10:47)
[2023-06-10] MEDS: PANTOPRAZOLE 40 MG TABLET PO (10:47)
[2023-06-10 13:17] VITALS: BP 120/57; PULSE 71; RESP 18; TEMP 36.1; O2SAT 100
[2023-06-11 12:43] LABS: Testosterone Total 13 ng/dL (250-1100)
--- NOTE | 2023-06-11 16:16 | PM.DS ---
DS: Admitting Diagnosis Discharge Date 06/10/23 Admitting Diagnosis Acute proctitis DS: Discharge Diagnosis Discharge Diagnosis (1) Acute proctitis: Code(s): K62.89 - Other specified diseases of anus and rectum Status: Acute Assessment and Plan: Prostate cancer with recent gold seed placement -now with presumed prostatitis and proctitis per imaging -urology consulted, appreciate recs -initially started on zosyn, switching to rocephin per urology recs -blood cultures pending -U/A negative -prn pain medications with [place] and tylenol (2) Prostatitis: Code(s): N41.9 - Inflammatory disease of prostate, unspecified Status: Acute (3) Urinary retention: Code(s): R33.9 - Retention of urine, unspecified Status: Acute Assessment and Plan: -required intermittent catheterization 06/08 with UOP 650 ml -bladder scan q 6 hours and prn -if requires more than 3 intermittent catheterizations, will place merlos (4) Hypertension: Code(s): I10 - Essential (primary) hypertension Status: Acute Assessment and Plan: -Lisinopril 10 mg PO BID, Metoprolol Succinate 25 mg PO daily restarted here -109/128/59-64 Plan Continue IV antibiotics, trend leukocytosis DS: Summary Hospital Course Reason for hospitalization: Acute proctitis Hospital Course: HPI obtained from chart: This is a 63-year-old male with prostate cancer, hypertension, hyperlipidemia, GERD, and gout who presented to the emergency department via private vehicle from home for evaluation of weakness. The patient provides the following history. He had a prostate biopsy on 03/30/2023 which was positive for acinar adenocarcinoma (Jackie score 4+3) and he underwent gold seed placement approximately 3 weeks ago. He did okay initially but he developed rectal pain 7 days ago and he was started on pain medications with improvement. Several ago the rectal pain returned and he has been feeling unwell since that time with progressive weakness, intermittent sweats, decreased appetite, and poor oral intake. He reports having almost no energy and has not been able to really even get himself up out of the chair for the last day. His last bowel movement was 4 days ago and he reports that it was quite painful. This stool was loose and not difficult to pass. He has had tenesmus since that time. Temperature in the ED was 100.4? and remaining vital signs were stable. Labs were significant for WBC count of 13.9 sodium 134, creatinine 0.70, CRP 0.6. Urine was unremarkable. CT of the abdomen and pelvis showed mild proctitis with inflammatory stranding in the retroperitoneal fat surrounding the prostate, rectum, and distal sigmoid colon. He was started on Zosyn in the ED and he is being admitted in this setting for further antibiotics and urology consultation. Later in the evening the patient reported having difficulties urinating and bladder scan showed greater than 600 mL of urine in the bladder. Straight cath x1 yielded 650 mL of darker yellow urine. Interval history: ?06/09:? Patient seen this morning resting in bed.? He says he is feeling better because he is now able to void spontaneously.? He still has rectal pain.? He denies symptoms of fever overnight. He also complains of a dry cough. 06/10: Patient has continued to improve. He states he is ready to go home. Pain is controlled with [place]. He will continue on oral antibiotics for total course of 2 weeks for prostatitis. He has urology follow-up on Wednesday which he has been encouraged to keep. He has no questions or concerns at this time. Status at Discharge Cognitive/behavioral status at discharge: Independent, A&O for Time Spent with Patient Time attestation: Total time spent providing and/or coordinating discharge services: 50 Exam Narrative: General: well-nourished, well-appearing 63 [id number], sitting up in bed, comfortable, NARD Neuro: awake, alert and oriented
== END 2023-06-10 16:12 | disposition home or self-care (01) ==
LOC: ANHED 11:06 → ANH2MED 14:22
PROVIDERS: Nurse Practitioner Acute Care; Nurse Practitioner Adult Health; Admitting Provider Internal Medicine; Emergency Provider General Practice; PCP Internal Medicine; Visit Provider Internal Medicine
DX: K62.89 Other specified diseases of anus and rectum (principal); N41.9 Inflammatory disease of prostate, unspecified; R33.9 Retention of urine, unspecified; I10 Essential (primary) hypertension; C61 Malignant neoplasm of prostate; R53.1 Weakness; R53.83 Other fatigue; J45.909 Unspecified asthma, uncomplicated; K21.9 Gastro-esophageal reflux disease without esophagitis; R06.02 Shortness of breath; M10.9 Gout, unspecified; M87.852 Other osteonecrosis, left femur; E78.5 Hyperlipidemia, unspecified; F10.90 Alcohol use, unspecified, uncomplicated; F17.290 Nicotine dependence, other tobacco product, uncomplicated; Z79.51 Long term (current) use of inhaled steroids; Z79.899 Other long term (current) drug therapy
CPT/HCPCS: 36415; 71046; 74177; 80048; 80053; 81003; 83605; 83735; 84153; 84403; 85025; 85610; 85730; 86140; 87040; 93005; 96361; 96365; 96367; 96372; 99285; A9270; G0378; J0696; J1650; J2543; J7030; Q9967

== ENCOUNTER 2023-07-22 11:30 | Outpatient (CLI) | payer OTHER, SELFPAY ==
[2023-07-22 12:29] LABS: Hematocrit 39.7 % (42.0-52.0); Hemoglobin 13.5 g/dL (14.0-18.0)
== END 2023-07-22 11:31 | disposition home or self-care (01) ==
LOC: ANHSURGERY 11:35
PROVIDERS: Anesthesiology; PCP Internal Medicine; Visit Provider Urology
DX: C61 Malignant neoplasm of prostate (principal); Z01.818 Encounter for other preprocedural examination
CPT/HCPCS: 36415; 85014; 85018; 86850; 86900; 86901; 87086; 87088

== ENCOUNTER 2023-08-03 03:43 | Day surgery (SDC) | payer OTHER, SELFPAY ==
--- NOTE | 2023-07-22 11:30 | PC.NURSE ---
PRE-OP INSTRUCTIONS, PLEASE READ CAREFULLY Report to the Outpatient Waiting Room, entrance under the green pavilion located off [facility], at time _0600_ on date _08/03/23_. Planned Procedure Time: _0730_. PACK A SMALL OVERNIGHT BAG AND LEAVE IN THE CAR Time changes happen often and if your time is changed the preop area will call you the afternoon before. - You and your visitor will be asked to self-screen and do not enter if you have any COVID symptoms. - A mask is optional within the hospital at this time. -VISITING HOURS 8AM-8PM Patients may have clear liquids (water, carbonated beverages, clear teas, apple juice) until 3 hours prior to surgery (0430 AM) with a maximum of 20 ounces. - No food from midnight until time of surgery Take the following medications with a SIP of water the morning of surgery: _METOPROLOL, & INHALER IF NEEDED_ DO NOT STOP ANY OF YOUR OTHER PRESCRIPTION MEDICATIONS PRIOR TO SURGERY ?EXCEPT THE FOLLOWING Medications to discontinue per DR. BLUNT - _ASPIRIN, IBUPROFEN, OMEGA XL 7 DAYS PRIOR TO SURGERY, Date to take last dose 07/26/23_ Please no make-up, nail portuguese, hairspray, perfume, deodorant, or body powder the day of surgery. No jewelry (including any body piercings) or valuables the day of surgery, leave them at home. Please take a shower or bath the night before, or the morning of, surgery with an antibacterial soap. Wear comfortable, loose fitting clothing. - Jewelry must be removed prior to entering the operating room. Rings and piercings that are not removed may be cut off. - The hospital will not accept responsibility for valuables. - Please leave all valuables, including medications, at home the day of surgery. If you are going home after surgery, a licensed public transit bus driver must drive you home. - NO public transportation without another adult if you receive anesthesia. - We recommend that an adult stay with you for 24 hours following discharge. - We also recommend that you do not drive, make important decision, drink alcoholic beverages, or take any drugs that were not prescribed by your health care provider for at least 24 hours after your discharge time. Follow any additional instructions given to you from your surgeon. If you or anyone in your household have experienced Covid symptoms in the past week, please notify your surgeon or the nurse liaison at the phone number below for possible testing. Instructions given to _PATIENT_and asked if any additional questions and then verbalized understanding. Patient advised to call surgeon office or pre surgery nurse liaison [phone] if any additional questions.
[2023-07-22 11:56] VITALS: BP 146/76; PULSE 64; RESP 20; TEMP 36.5; O2SAT 100; BMI 32.6
--- NOTE | 2023-08-02 14:29 | WPDANESEPPF ---
Anes - Initial Pre Proc Eval Procedure: Operation Date: 08/03/23 07:30 Proposed Procedures p Robotic Assisted Nerve Sparing Prostatectomy with Possible Pelvic Lymph Node Dissection - Florencio Daniel MD Date/Time: 08/02/23 14:29 Surgeon: Florencio Daniel MD Pre Op Diagnosis: prostate CA Patient Data Age: 63 Gender: M Height: 1.83 m Weight: 109.2 kg Last Vital Signs Temp 97.7 F 07/22/23 11:56 Pulse 64 07/22/23 11:56 Resp 20 07/22/23 11:56 BP 146/76 H 07/22/23 11:56 Pulse Ox 100 07/22/23 11:56 O2 Del Method Room Air 07/22/23 11:56 Allergies Allergy/AdvReac Type Severity Reaction Status Date / Time No Known Allergies Allergy Verified 08/03/23 06:05 Home Medications Medication Instructions Recorded Confirmed Type omeprazole 40 mg capsule,delayed 40 mg PO DAILY #30 caps 07/05/22 08/03/23 Rx release allopurinol 300 mg tablet 300 mg PO DAILY 03/22/23 08/03/23 History ergocalciferol (vitamin D2) 1,250 1,250 mcg PO WEEKLY 03/22/23 08/03/23 History mcg (50,000 unit) capsule metoprolol succinate 50 mg 25 mg PO DAILY 03/22/23 08/03/23 History tablet,extended release 24 hr tamsulosin 0.4 mg capsule 0.4 mg PO QAM 30 days #30 caps 06/10/23 08/03/23 Rx [place] Xl 2 tab-cap DAILY 07/22/23 08/03/23 History aspirin 81 mg tablet,delayed 81 mg PO DAILY 07/22/23 08/03/23 History release budesonide-formoterol HFA 160 2 puff inhalation Q12H PRN Wheezing 07/22/23 08/03/23 History mcg-4.5 mcg/actuation aerosol inhaler (Symbicort) folic acid 1 mg tablet 1 mg PO DAILY 07/22/23 08/03/23 History ibuprofen 200 mg capsule 400 mg PO BID PRN Pain 07/22/23 08/03/23 History pantoprazole 40 mg tablet,delayed 40 mg PO DAILY 07/22/23 08/03/23 History release simvastatin 20 mg tablet 20 mg DAILY 07/22/23 08/03/23 History Patient hx anesthesia problems: none Family hx anesthesia problems: none Results Review: All pre-operative results and documents have been reviewed as part of the pre-operative evaluation. [facility] Past Medical History Medical History (Updated 06/09/23 @ 00:17 by Jaye Barbosa PA-C) Asthma Esophageal stricture Gastroesophageal reflux disease Gout Hyperlipidemia Hypertension Prostate cancer (03/2023) Surgical History Surgical History History of cervical spinal surgery (02/2023) C5-C7 fusion. History of meniscectomy of right knee History of prostate biopsy (03/2023) History of tonsillectomy History of total right hip arthroplasty (06/2018) History of vein stripping Family History Family History Mother Peripheral artery disease Hypertension Father Epilepsy Other Colon polyp Social History Social History Social History: Surrogate medical decision maker: Melissa Cisneros, mother. Code status: Full code. Smoking status: Never smoker Tobacco type: smokeless tobacco Smokeless tobacco user: chewing tobacco Second hand tobacco smoke exposure: No Additional smoking assessment comments: CHEWING TOBACCO DAYILY USE Alcohol intake: current Drinks per week: 30 Alcohol use details: BEER Substance use: current Substance use type: marijuana Other substance usage details: EDIBLES FOR PAIN/STRESS Last use: JUNE 2023 Lack of Transportation: No Lack of Food: Never True Current Housing: I Have Housing Concerned About Future Housing: No Difficulty Paying Gas/Electric Bills: No Difficulty Paying for Meds: No Currently Unemployed: No Education: High School Diploma/GED Difficulty w/ Childcare or Family Care: No Living arrangements: alone Spiritual care concerns: No Anes - Eval Final PreProcedure Day of Procedure 08/02/23 14:29 Patient weight: obese Heart: regular rate and rhythm Lungs: clear to auscultation Airway: Mal
[2023-08-03] VITALS (15 sets, daily range): BP systolic 122–180; BP diastolic 51–95; PULSE 68–86; RESP 12–18; TEMP 36–36.8; O2SAT 95–100
[2023-08-03] MEDS: LACTATED RINGERS 1,000 ML 30 ML IV CONT ×3 (06:36→13:44)
--- NOTE | 2023-08-03 07:14 | WPDHPUPDATE1 ---
History and Physical Update Update Date/Time: 08/03/23 07:14 History and Physical has been reviewed, including an updated exam of the patient. There are NO changes in the patient's condition. Risks, benefits, and alternatives have been discussed and questions answered. Patient agrees to proceed with procedure. Proceed with robotic assist nerve sparing prostatectomy with possible plnd
[2023-08-03] MEDS: ceFAZolin 2 GM/D5W 50 ML 2 GM/50 ML BAG IVPB (07:35)
[2023-08-03] MEDS: BUPivacaine HCL 0.5% 10 ML AMP 20 ML INFILTRATE (08:23)
--- NOTE | 2023-08-03 12:26 | P.OP_ITS ---
Procedure Note - Detailed Date of Procedure 08/03/23 Pre-op Diagnosis prostate CA Post-op Diagnosis Same Procedure Performed Robotic assisted nerve-sparing prostatectomy with left pelvic lymphadenectomy Surgeon Florencio Daniel MD Anesthesia General Description of Procedure Patient is taken to the operative suite correctly identified. Once anesthesia was obtained was placed in dorsal lithotomy position and prepped draped usual sterile fashion. Sixteen Luxembourger Pepe was placed inflated with 10 cc. Supr aumbilical incision was then made carried down to the rectus fascia. Veress needle was inserted in the end was insufflated 15 mmHg pressure. Working ports were placed in appropriate locations. The patient was placed in steep Trendelenburg position. The robot was docked. He did have some adhesions along the sigmoid colon. These were taken down. Posterior approach was then performed. Seminal vesicles were extremely long. There were dissected out in their entirety. The vas were transected. The posterior plane was then developed. It was somewhat inflammatory as he had a prior spaceoar placed. The bladder was then taken down. Space of Retzius was developed. Puboprostatic were taken down. Dorsal venous complex was isolated using 0 Vicryl and secured to the pubic bone. The bladder was then opened anteriorly. He does have some was lateral lobes protruding into the bladder in a slight median lobe. These were dissected out. The bladder neck was then larger than I would have liked. I thus did a reconstruction in a tennis racquet fashion posteriorly using 2-0 Vicryl in a running fashion. The pedicles were clipped. Bilateral nerve- sparing was performed. Dorsal venous complex was transected as was the urethra. Specimen was placed in Endo-Catch bag. Left pelvic lymph node dissection was then performed a standard fashion. Boundaries were the external iliac vein, obturator nerve, Billy's ligament, and the bifurcation of vessels. Clips were placed proximally distally. The lymph node packet was placed in the Endo-Catch bag. Surgicel was then placed along the floor as well as the left obturator fossa. The bladder neck was then reanastomosed to the urethral stump using V lock suture in a running fashion. It was noted that there was some separation posteriorly. A 2nd V lock suture was then placed to reapproximate things. There appeared to be good mucosal approximation at this point. Sixteen Luxembourger Pepe was placed inflated with 10 cc of saline. Bladder was irrigated with 200 cc of normal saline. There was no evidence of extravasation at this time. Dorsal venous complex was then oversewn using V lock suture. COURTNEY drain was brought out through the 4th port site. This was secured. All lap count needle count sponge counts were correct. The robot was then docked. Midline incision was extended and the Endo-Catch bag was retrieved. Rectus fascia was closed using 0 Vicryl running fashion. Subcuticular stitches were placed. The incisions were anesthetized with 1% lidocaine. All lap count needle count sponge counts were correct. Patient is taken recovery stable condition. This completes dictation on this patient. Please send a copy of this op note to my office Estimated Blood Loss 100 Drains Yes Packing No Pathology Yes Complications No immediate complications Condition Stable Disposition PACU
[2023-08-03] MEDS: ONDANSETRON INJ 4 MG/2 ML VIAL IV PUSH (13:03)
[2023-08-03] MEDS: fentaNYL CITRATE INJ (*CRX) 100 MCG/2 ML VIAL 25 MCG IV PUSH ×6 (13:15→14:19)
--- NOTE | 2023-08-03 15:27 | ADMGEN ---
This patient, sOcar Ag, was admitted to [facility] Surg Room 328-01. Patient/family oriented to hospital policies and general routines including ID bracelet, bed and alarms, visiting hours, pain management, procedures, bathroom and other care routines, personal items, smoking policy, room service/diet, and visiting hours. Information on how to activate the Rapid Response Team has been discussed. Patient/Family are encouraged to report perceived risks to care and to ask questions if they do not understand what they are told or what they should do.
[2023-08-03 15:56] LABS: Estimated CRCL calculation 136 ml/min; Estimated Glomerular Filt Rate > 60
[2023-08-03] MEDS: LACTATED RINGERS 1,000 ML 125 ML IV CONT (16:12)
[2023-08-03] MEDS: KETOROLAC 30 MG/ML VIAL (*BKC) IV PUSH (16:12)
[2023-08-03] MEDS: DOCUSATE SODIUM 100 MG CAPSULE PO (16:14)
[2023-08-03] MEDS: HYDROcodone/acetaminophen (*CRX) 5-325 MG TABLET 1 TAB PO (18:38)
[2023-08-04] MEDS: HYDROcodone/acetaminophen (*CRX) 5-325 MG TABLET 1 TAB PO ×2 (00:19→08:42)
[2023-08-04] MEDS: LACTATED RINGERS 1,000 ML 125 ML IV CONT (00:21)
[2023-08-04 00:30] VITALS: BP 135/63; PULSE 73; RESP 18; TEMP 36.3; O2SAT 99
[2023-08-04 04:41] VITALS: BP 132/74; PULSE 65; RESP 18; TEMP 36.2; O2SAT 98
[2023-08-04] MEDS: MORPHINE SULFATE (*CRX) 2 MG/ML INJ IV PUSH (05:30)
[2023-08-04 06:49] LABS: Hematocrit 35.3 % (42.0-52.0); Hemoglobin 11.8 g/dL (14.0-18.0)
[2023-08-04 06:58] LABS: Anion Gap 6 mmol/L (8-16); Blood Urea Nitrogen 13 mg/dL (9-20); Calcium 8.6 mg/dL (8.4-10.2); Carbon Dioxide 25 mmol/L (22-30); Chloride 102 mmol/L (98-107); Estimated CRCL calculation 136 ml/min; Estimated Glomerular Filt Rate > 60; Glucose 107 mg/dL (65-110); Potassium 3.9 mmol/L (3.4-5.0); Sodium 133 mmol/L (137-145)
[2023-08-04 08:32] VITALS: PULSE 89
[2023-08-04] MEDS: METOPROLOL SUCCINATE EXT REL 25 MG TABCR PO (08:32)
[2023-08-04] MEDS: SIMVASTATIN 20 MG TABLET BY MOUTH (08:32)
[2023-08-04] MEDS: DOCUSATE SODIUM 100 MG CAPSULE PO (08:32)
[2023-08-04] MEDS: levoFLOXacin 500 MG TABLET PO (08:33)
[2023-08-04 08:41] VITALS: BP 134/80; PULSE 78; RESP 15; TEMP 36.8; O2SAT 97
--- NOTE | 2023-08-04 10:22 | WPDANESPN ---
Anes - Prog Note Post-Op Date/Time: 08/04/23 10:22 Cardiovascular status: normal Respiratory status: normal Airway patency: baseline Mental status: baseline Post-Op hydration status: normal Vital Signs: Last Vital Signs Temp 97.1 F L 08/04/23 04:41 Pulse 89 08/04/23 08:32 Resp 18 08/04/23 04:41 BP 132/74 08/04/23 04:41 Pulse Ox 98 08/04/23 04:41 O2 Del Method Room Air 08/03/23 14:45 O2 Flow Rate 10 08/03/23 12:49 Pain Score (VAS): 8 I/O: Intake & Output 08/03/23 08/04/23 08/04/23 23:59 07:59 15:59 Intake Total 1320 1000 480 Output Total 355 50 25 Balance 965 950 455 Laboratory Tests 08/04/23 06:38 08/04/23 06:38 08/03/23 08/04/23 15:40 06:38 Hgb 11.8 L Hct 35.3 L Sodium 133 L Potassium 3.9 Chloride 102 Carbon Dioxide 25 Anion Gap 6 L BUN 13 D Creatinine 0.60 L 0.60 L Estim Creat Clear Calc 136 136 Estimated GFR > 60 > 60 Glucose 107 Calcium 8.6 Post-procedural complaints: none Patient Feedback: pt satisfied with anesthetic. Pt having complaints of increased lower abdominal pain, verbalizes concern that he has not had a BM since surgery, denies flattus. pt states he was given a stool softener but no result as of yet. encouraged fluid and ambulation.
--- NOTE | 2023-08-04 12:50 | WPDUROPN2 ---
Progress Note: A&P Assessment and Plan (1) Prostate cancer: Onset Date: 03/2023 Code(s): C61 - Malignant neoplasm of prostate Status: Acute Assessment and Plan: Remove COURTNEY drain, apply a dry dressing over drain site with tape to secure. Patient to be discharged home this afternoon with catheter. Change catheter bag to a leg bag and teach catheter care prior to discharge home. Subjective Subjective Date/Time Seen: 08/04/23 12:50 Post Op day: 1 Interval history: S/P Robotic assisted nerve-sparing prostatectomy with left pelvic lymphadenectomy. The patient appears to be doing very well today, he is sitting up in bed. He states he walked to the bathroom to try to have a BM but was unable to do so. His COURTNEY drain has little output. His incisions are painful with cough and exertion but are tolerable with pain medication. He is tolerating his diet and activity and urine is clear, draining to gravity in the catheter. Review of Systems Cardiovascular: Cardiovascular: Denies chest pain Respiratory: Respiratory: Reports no additional respiratory complaints Gastrointestinal: Gastrointestinal: Reports abdominal pain (at incisional sites only), Denies nausea and Denies vomiting Genitourinary: Genitourinary: Denies hematuria, Denies dysuria, Denies flank pain, Denies urinary frequency, Denies urinary hesitancy, Denies urinary incontinence and Denies urinary urgency Exam Const: General: cooperative and comfortable Cardio: Rate: regular rate GI: Inspection: incision (all are well approximated, no drainage, redness or edema noted, tender ) GI Palp: Yes Soft to palpation and No Tenderness to palpation present (GI) : General: Yes no CVA tenderness Meatus: Blood at meatus present Scrotum: scrotum normal Urinary Catheter: Urinary Catheter: patent and draining and urine clear Extrem: Right lower extremity: no edema Left lower extremity: no edema Objective Data Vital Signs Vital Signs: Vital Signs - 24 hr 08/03/23 13:04 08/03/23 13:19 08/03/23 13:30 Temperature Pulse Rate 86 85 83 Respiratory Rate 13 16 12 Blood Pressure 180/87 H 169/91 H 165/90 H Pulse Oximetry 100 97 99 Oxygen Delivery Room Air Room Air Room Air 08/03/23 13:45 08/03/23 14:00 08/03/23 14:15 Temperature Pulse Rate 83 83 86 Respiratory Rate 14 16 16 Blood Pressure 172/84 H 170/95 H 161/84 H Pulse Oximetry 98 98 99 Oxygen Delivery Room Air Room Air Room Air 08/03/23 14:30 08/03/23 14:45 08/03/23 15:15 Temperature 96.8 F L Pulse Rate 81 78 83 Respiratory Rate 14 13 17 Blood Pressure 163/92 H 143/76 H 166/78 H Pulse Oximetry 96 95 99 Oxygen Delivery Room Air Room Air 08/03/23 15:30 08/03/23 16:00 08/03/23 17:00 Temperature 97.5 F L 97.6 F 97.6 F Pulse Rate 81 80 86 Respiratory Rate 17 16 16 Blood Pressure 161/82 H 145/85 H 136/51 L Pulse Oximetry 99 96 97 Oxygen Delivery 08/03/23 20:41 08/04/23 00:30 08/04/23 04:41 Temperature 97.3 F L 97.4 F L 97.1 F L Pulse Rate 75 73 65 Respiratory Rate 18 18 18 Blood Pressure 126/73 135/63 132/74 Pulse Oximetry 98 99 98 Oxygen Delivery 08/04/23 08:32 08/04/23 08:41 Temperature 98.2 F Pulse Rate 89 78 Respiratory Rate 15 Blood Pressure 134/80 Pulse Oximetry 97 Oxygen Delivery Intake/Output Intake/Output: Intake & Output 08/01/23 08/02/23 08/03/23 08/04/23 23:59 23:59 23:59 23:59 Intake Total 2470 1480 Output Total 595 75 Balance 1875 1405 Meds/Results Medications: Active Medications Generic Name Dose Route Start Last Admin Trade Name Freq PRN Reason Stop Dose Admin Hydrocodone Bitart/Acetaminophen 1 tab 08/03/23 14:56 08/04/23 08:42 Hydrocodone/Acetaminophen (*Crx) 5-325 Mg Tablet PO 1 tab Q6H PRN Administration Pain Rated 1-3 Hydrocodone Bitart/Acetaminophen 2 tab 08/04/23 14:56 Hydrocodone/Acetaminophen (*Crx) 5-325 Mg Tablet PO Q6H PRN Pain Rated 4-6 Docusate Sodium 100 mg
== END 2023-08-04 13:52 | disposition home or self-care (01) ==
LOC: ANHSURGERY 05:46 → ANH3MEDSUR 14:58
PROVIDERS: PCP Internal Medicine; Visit Provider Urology
PROC: 0VT04ZZ Resection of Prostate, Percutaneous Endoscopic Approach (ICD-10-PCS; CPT 55867; principal; 2023-08-03 07:30)
DX: C61 Malignant neoplasm of prostate (principal); J45.909 Unspecified asthma, uncomplicated; K21.9 Gastro-esophageal reflux disease without esophagitis; I10 Essential (primary) hypertension; E78.5 Hyperlipidemia, unspecified; M10.9 Gout, unspecified; Z79.51 Long term (current) use of inhaled steroids; Z79.82 Long term (current) use of aspirin; Z98.1 Arthrodesis status; F17.220 Nicotine dependence, chewing tobacco, uncomplicated; E66.9 Obesity, unspecified; Z68.32 Body mass index [BMI] 32.0-32.9, adult; F12.90 Cannabis use, unspecified, uncomplicated
CPT/HCPCS: 55866; 38571; S2900; 36415; 80048; 82565; 85014; 85018; 86850; 86900; 86901; 87086; 87088; 88309; A9270; J0330; J0690; J1100; J1170; J1885; J2250; J2270; J2405; J2704; J3010; J7030; J7120

== ENCOUNTER 2023-08-11 09:53 | Outpatient (CLI) | payer OTHER, SELFPAY ==
--- NOTE | ~2023-08-11 | XR_ITS ---
EXAMINATION: CYSTOGRAM DATE: 08/11/2023 10:52 INDICATION: Prostate cancer post prostatectomy TECHNIQUE: Initial devil dog radiograph of the pelvis was performed. There was retrograde administration of Omnipaque 350 mixed with saline contrast into patient's existing Pepe catheter. Fluoroscopic yaneli ges of the pelvis were obtained. A post-void image was also performed. A total of 14 fluoroscopic yaneli ges and one overhead radiographs were obtained. Fluoroscopy exposure time was 0.6 minutes. FINDINGS: Icicle Machine Operator image demonstrates a couple surgical clips at the expected location of the prostatectomy bed. P artially visualized right total hip arthroplasty in near-anatomic alignment. There is some sclerosis at the apex of the left femoral head suggestive of osteonecrosis. Subsequent images demonstrate filli ng of the bladder. No evident bladder leak at the prostatectomy bed. There is a trabeculated mucosal contour to the bladder which may relate to prior chronic outlet obstruction. There is also right-side d vesicoureteral reflux. IMPRESSION: 1. Status post prostatectomy with no evident bladder leak. 2. Right-sided vesicoureteral reflux. 3. 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 Reviewed, dictated and finalized at location A.
== END 2023-08-11 09:54 | disposition home or self-care (01) ==
PROVIDERS: PCP Internal Medicine; Visit Provider Urology
DX: C61 Malignant neoplasm of prostate (principal)
CPT/HCPCS: 51600; 74430; Q9967

== ENCOUNTER 2023-12-31 16:50 | Emergency (ER) | payer OTHER, SELFPAY ==
[2023-12-31] VITALS (14 sets, daily range): BP systolic 131–163; BP diastolic 80–100; PULSE 76–100; RESP 17–27; TEMP 36.7; O2SAT 95–100
--- NOTE | ~2023-12-31 | XR_ITS ---
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 RESULT: Lines, tubes, and devices: ACDF hardware. Lungs and pleura: Mild diffuse reticular opacities. Mild cuffing. Subsegmental focus of left medial basal airspace disease. Cardiomediastinal silhouette: Stable. Other: No acute osseous or upper abdominal finding. IMPRESSION: Pulmonary opacities may represent mild interstitial edema or respiratory bronchiolitis. Likely left m edial basal atelectasis, infection not excluded. Reviewed, dictated and finalized at location K. ERTY DISPOSAL MANAGER IMPRESSION: Pulmonary opacities may represent mild interstitial edema or respiratory bronch iolitis. Likely left medial basal atelectasis, infection not excluded.
--- NOTE | ~2023-12-31 | CT_ITS ---
EXAMINATION: CTA chest DATE: 12/31/2023 17:49 INDICATION: hematemesis, ripping chest pain TECHNIQUE: Computed tomography (CT) of the chest was performed with 100 mL Omnipaque-350 intravenous contrast, in the arterial phase. Automated exposure control and iterative reconstruction technique we re employed. The dose-length product was 976.69 mGy-cm. COMPARISON: X-ray chest, same date. FINDINGS: CHEST: Thoracic aorta: No significant dilation. No dissection. Mild arch calcification. Lung parenchyma and airways: Lungs and airways are clear. Thoracic inlet, axillae and chest wall: No thyroid or soft tissue mass. No axillary lymphadenopathy. Mediastinum: Enlarged paratracheal lymph nodes. Severe esophageal wall edema. Loss of the fat planes surrounding the esophagus, with mediastinal fluid. Small foci of likely extraluminal gas noted anteri or to the esophagus. Large hiatal hernia. Focal hyperdensities in the mid and lower esophagus likely representing ingested material. Heart and pericardium: Normal heart size. No pericardial effusion. Coronary artery calcifications: Mild. Pleura: Small bilateral fluid collections.. Upper abdomen: No significant finding. Thoracic bones: No acute osseous finding in the chest. IMPRESSION: Findings suspicious for esophageal perforation, in a background of severe esophagitis. An esophageal mass is not excluded. Mediastinal lymphadenopathy, inflammatory change, and fluid, with small volume pneumomediastinum. Large hiatal hernia. Small bilateral pleural effusions. Suspicion of esophageal perforation reported telephonically to Sarika Khalil PA-C by Dr. Berrios at 6:00 PM on 12/31/2023. Reviewed, dictated and finalized at location K. T MARKER IMPRESSION: Findings suspicious for esophageal perforation, in a background of severe esoph agitis. An esophageal mass is not excluded. Mediastinal lymphadenopathy, inflammatory change, and fluid, with small volume pneumomediastinum. Large hiatal hernia. Small bilateral pleural effusions. Suspicion of esophageal perforation reported telephonically to Sarika Nassar lt, PA-C by Dr. Berrios at 6:00 PM on 12/31/2023.
--- NOTE | 2023-12-31 16:51 | ECG_ITS ---
Measurements Intervals [place] Rate: 91 P: 57 SD: 157 QRS: 54 QRSD: 84 T: 64 QT: 310 QTc: 382 Interpretive Statements SINUS RHYTHM WITH SINUS ARRHYTHMIA WITHIN NORMAL LIMITS ] COMPARED TO ECG 06/08/2023 10:02:48 NO SIGNIFICANT CHANGES Electronically Signed On 01-01-2024 8:15:13 AUTHORIZATION COORDINATOR by Reji Steve M.D.
--- NOTE | 2023-12-31 17:21 | ED.CHESTPAIN ---
HPI - Chest Pain General Chief Complaint: Chest Pain <FRANDY Ocampo Last Filed: 12/31/23 19:47> Stated Complaint: chest pain/hematemesis <FRANDY Ocampo Last Filed: 12/31/23 19:47> Time Seen by Provider: 12/31/23 17:20 <FRANDY Ocampo Last Filed: 12/31/23 19:47> Source: patient <FRANDY Ocampo Last Filed: 12/31/23 19:47> Mode of arrival: ambulatory <FRANDY Ocampo Last Filed: 12/31/23 19:47> Limitations: no limitations <FRANDY Ocampo Last Filed: 12/31/23 19:47> History of Present Illness HPI narrative: Patient is a 63-year-old male who presents the ED with report of chest pain. Patient reports he became nauseous and began vomiting around 2:00 p.m. today. States vomit was food-related/sputum-like at first, but then began forcibly vomiting regino bright red blood. He had 4-5 episodes of bright red hematemesis. He then developed severe pain with his midsternal chest afterwards. States the chest pain is the worst it has ever been. States he does still feel nauseous currently, as well as mildly dizzy. He denies any previous history of heart disease. Denies abdominal pain. Patient is a daily drinker, drinks up to a 30 pack per week. Denies any previous history of esophageal varices. Has had prior EGDs in the past r/t food boluses. Hx GERD, supposed to be on PPI but noncompliant with this. He takes an aspirin 81 mg daily. No other blood thinners. <FRANDY Ocampo Last Filed: 12/31/23 19:47> Related Data Home Medications: Home Medications Medication Instructions Recorded Confirmed allopurinol 300 mg tablet 300 mg PO DAILY 03/22/23 08/03/23 ergocalciferol (vitamin D2) 1,250 1,250 mcg PO WEEKLY 03/22/23 08/03/23 mcg (50,000 unit) capsule metoprolol succinate 50 mg 25 mg PO DAILY 03/22/23 08/03/23 tablet,extended release 24 hr [place] Xl 2 tab-cap DAILY 07/22/23 08/03/23 aspirin 81 mg tablet,delayed 81 mg PO DAILY 07/22/23 08/03/23 release budesonide-formoterol HFA 160 2 puff inhalation Q12H PRN Wheezing 07/22/23 08/03/23 mcg-4.5 mcg/actuation aerosol inhaler (Symbicort) folic acid 1 mg tablet 1 mg PO DAILY 07/22/23 08/03/23 ibuprofen 200 mg capsule 400 mg PO BID PRN Pain 07/22/23 08/03/23 pantoprazole 40 mg tablet,delayed 40 mg PO DAILY 07/22/23 08/03/23 release simvastatin 20 mg tablet 20 mg DAILY 07/22/23 08/03/23 <Sarika Khalil PA-C - Last Filed: 12/31/23 19:47> Allergies/Adverse Reactions: Allergies Allergy/AdvReac Type Severity Reaction Status Date / Time No Known Allergies Allergy Verified 08/03/23 06:05 <Sarika Khalil PA-C - Last Filed: 12/31/23 19:47> Review of Systems Review of Systems: CONSTITUTIONAL: Denies fever, chills, or sweats. CARDIOVASCULAR: See HPI. RESPIRATORY: Denies cough or dyspnea. GASTROINTESTINAL: See HPI NEUROLOGIC: See HPI <Sarika Khalil PA-C - Last Filed: 12/31/23 19:47> All systems reviewed & are unremarkable except as noted in HPI and below <Sarika Khalil PA-C - Last Filed: 12/31/23 19:47> [facility] Past Medical History Medical History: Medical History Asthma Esophageal stricture Gastroesophageal reflux disease Gout Hyperlipidemia Hypertension Prostate cancer (03/2023) <Sarika Khalil PA-C - Last Filed: 12/31/23 19:47> Surgical History Surgical History: Surgical History History of cervical spinal surgery (02/2023) C5-C7 fusion. History of meniscectomy of right knee History of prostate biopsy (03/2023) History of tonsillectomy History of total right hip arthroplasty (06/2018) History of vein stripping <Sarika Khalil PA-C - Last Filed: 12/31/23 19:47> Family History Family History: Family History (Reviewed 12/31/23 @ 19:
[2023-12-31 17:23] LABS: Basophils Percent Auto 0.3 % (0.2-1.2); Eosinophils Percent Auto 0.4 % (0-4.4); Hematocrit 49.4 % (42.0-52.0); Hemoglobin 17.4 g/dL (14.0-18.0); Immature Granulocyte Absolute 0.03 K/mm3 (0.00-0.031); Immature Granulocyte Percent A 0.3 % (0-0.5); Lymphocytes Absolute Auto 1.85 K/mm3 (0.9-3.2); Lymphocytes Percent Auto 18.3 % (18.3-44.2); Mean Corpuscular HGB Conc 35.2 g/dl (32-36); Mean Corpuscular Hemoglobin 32.8 pg (26-34); Mean Platelet Volume 11.2 fl (7.4-10.4); Monocytes Absolute Auto 0.4 K/mm3 (0.1-0.6); Neutrophils Absolute Auto 7.7 K/mm3 (1.3-6.7); Neutrophils Percent Auto 76.7 % (45.5-73.1); Platelet Count Result 223 k/mm3 (150-375); Red Blood Count 5.31 M/mm3 (4.6-6.20); White Blood Count 10.1 K/mm3 (4.5-10.0)
[2023-12-31 17:33] LABS: Ethanol < 10 mg/dL (<10)
[2023-12-31 17:35] LABS: Alanine Aminotransferase 47 U/L (6-50); Albumin Level 4.7 g/dL (3.5-5.1); Alkaline Phosphatase 104 U/L (38-126); Anion Gap 13 mmol/L (8-16); Aspartate Amino Transferase 38 U/L (17-59); Bilirubin,Total 1.3 mg/dL (0.2-1.3); Blood Urea Nitrogen 18 mg/dL (9-20); Carbon Dioxide 21 mmol/L (22-30); Chloride 103 mmol/L (98-107); Estimated CRCL calculation 94 ml/min; Estimated Glomerular Filt Rate > 60; Glucose 142 mg/dL (65-110); Lipase 115 U/L (23-300); Potassium 3.9 mmol/L (3.4-5.0); Sodium 137 mmol/L (137-145)
[2023-12-31 17:37] LABS: Partial Thromboplastin Time 23.5 SECONDS (22.3-36.8); Prothrombin Time 13.1 Seconds (11.1-14.7)
[2023-12-31] MEDS: fentaNYL CITRATE INJ (*CRX) 100 MCG/2 ML VIAL 25 MCG IV PUSH (17:40)
[2023-12-31 17:46] LABS: Troponin I < 0.012 ng/mL (0.000-0.034)
[2023-12-31] MEDS: ONDANSETRON INJ 4 MG/2 ML VIAL IV PUSH ×2 (17:59→21:02)
[2023-12-31] MEDS: PANTOPRAZOLE SODIUM IV 40 MG VIAL IV PUSH (18:24)
[2023-12-31] MEDS: PIPERACILLN/TAZ 3.375GM/NS50ML 3.375 GM/50 ML BAG IVPB (18:24)
[2023-12-31] MEDS: PANTOPRAZOLE SODIUM IV 80 MG in SODIUM CHLORIDE 0.9% IV 500 ML 50 MG IV CONT (18:35)
[2023-12-31 18:36] LABS: NT Pro B Type Natriuretic Pept 51 pg/mL (19.9-100)
--- NOTE | 2023-12-31 19:36 | PC.NURSE ---
this rn assumed care of patient. this rn took patient report from GABRIELE Rico.
[2023-12-31 20:28] LABS: Troponin I < 0.012 ng/mL (0.000-0.034)
[2023-12-31] MEDS: MORPHINE SULFATE (*CRX) 4 MG/ML INJ IV PUSH (21:02)
--- NOTE | 2023-12-31 21:05 | PC.NURSE ---
this rn received a bed from Korey at the [facility] transfer center for pt at 2045. Pt bed assignment is 305-02. Pt report was called at 2047 to GABRIELE Jacob.
== END 2023-12-31 21:06 | disposition short-term general hospital (02) ==
PROVIDERS: Student in an Organized Health Care Education/Training Program; Emergency Provider Physician Assistant; PCP Internal Medicine
DX: K22.3 Perforation of esophagus (principal); K92.2 Gastrointestinal hemorrhage, unspecified; F10.10 Alcohol abuse, uncomplicated; E78.5 Hyperlipidemia, unspecified; I10 Essential (primary) hypertension; J45.909 Unspecified asthma, uncomplicated; Y90.9 Presence of alcohol in blood, level not specified; Z85.46 Personal history of malignant neoplasm of prostate; Z79.82 Long term (current) use of aspirin; Z79.01 Long term (current) use of anticoagulants
CPT/HCPCS: 36415; 71045; 71275; 80053; 80307; 83690; 83880; 84484; 85025; 85610; 85730; 86850; 86900; 86901; 93005; 96365; 96366; 96367; 96375; 96376; 99285; C9113; J2270; J2405; J2543; J3010; J7040; Q9967

== ENCOUNTER 2025-08-20 09:53 | Inpatient (IN) | payer MEDICARE, SELFPAY ==
--- NOTE | ~2025-08-20 | XR_ITS ---
EXAMINATION: XR chest 1V portable COMPARISON: No comparisons available. HISTORY: pre op FINDINGS: The lungs are clear, no effusion. No pneumothorax. Heart is normal size. Mediastinal and hilar contours are within normal limits. Bony thorax no acute abnormality. Miscellaneous: None Impression: No acute cardiopulmonary abnormality. Reviewed, dictated and finalized at location P. Impression: No acute cardiopulmonary abnormality.
[2025-08-20 10:15] VITALS: BP 135/73; PULSE 67; RESP 17; TEMP 36.3; O2SAT 100
--- OUTSIDE RECORDS SUMMARY | 2025-08-20 10:55 | XMS_ITS | Encounter Summary ---
Author Organization [facility] Healthcare Address [address] [place] [address] Care Team Providers Care Enterprise Application Administrator Name Role Phone Kacy Estrada MD Primary Care Provider [phone]- [phone] Encounter Details Date Type Department Care Team (Late st Contact Info) Description 04/15/2021 Telephone [facility] Radiology [address] [place] [address] Neha Lopez MD [address] [facility] [address] [place] [address] Social History Tobacco Use Types Packs/Day Years Used Date Smoking Tobacco: Every Day Sex and Gender Information Value Date Recorded Sex Assigned at Not on file 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
--- OUTSIDE RECORDS SUMMARY | 2025-08-20 10:55 | XMS_ITS | Clinical Summary ---
Author Organization [facility] [employer] Address [address] [place] [address] Care Team Providers Care Felt Hat Mellowing Machine Operator Name Role Phone Kacy Estrada MD Primary Care Provider [phone] Source Comments [facility] [employer],non-owned Affiliates and Associated Physician Practices is amultiple site organization consisting of ambulatory clinics and hospital sitesin [place], [place], [place] and [place]. This disclosure is being madepursuant to the Care Everywhere program and may not contain all information available regarding this patient. Last updated 18.[employer] Allergies No known active allergies Medications * Be aware that medications may not be up to date on this document. Alwaysverify current medications with the patient. allopurinol (ZYLOPRIM) 300 MG tablet Take 1 (one) tablet by mouth once daily 1 9 Active vitamin D, ergocalciferol, (DRISDOL) 12491 units capsule Take 1 (one) capsule by mouth every 14 days PT REPORTS WEEKLY ON SUNDAYS 0 9 Active folic acid (FOLVITE) 1 MG tablet Take 1 (one) tablet by mouth once daily 0 9 Active lisinopril (PRINIVIL; ZESTRIL) 10 MG tablet Take 1 (one) tablet by mouth once daily 0 9 Active simvastatin (ZOCOR) 40 MG tablet Take 1 (one) tablet by mouth once daily 1 9 Active metoprolol succinate XL 24hr (TOPROL XL) 50 MG tablet Take 1 (one) tablet by mouth once daily 0 9 Active Symbicort 160-4.5 MCG/ACT inhaler Inhale 2 (two) puffs by mouth 2 times daily 3 Active predniSONE (Deltasone) 10 MG tablet Take 2 tablets twice a day for 5 days, then take 1 tablet twice a day for 5 days, then take 1 tablet daily for 5 days 35 tablet 4 Active tamsulosin (Flomax) 0.4 MG capsule Take 1 (one) capsule by mouth once daily At the same time every day after a meal. Active pantoprazole EC (Protonix) 40 MG tablet Take 1 (one) tablet by mouth daily before breakfast 30 tablet 4 Active Additional Information Patient not taking.Reported on 02/08/2024 ondansetron, disintegrating, (Zofran ODT) 4 MG tablet Take 1 (one) tablet by mouth every 6 hours as needed for Nausea/Vomiting Allow tablet to dissolve on the tongue 20 tablet 4 Active Additional Information Patient not taking.Reported on 02/04/2024 HYDROcodone-acet aminophen ([place]) 10-325 MG tabletIndication s:Esophageal perforation Take 1 (one) tablet by mouth every 6 hours as needed for Pain 12 tablet 4 Active Active Problems Problem Noted Date Diagnosed Date Esophageal perforation 12/31/2023 Social History Tobacco Use Types Packs/Day Years Used Date Smoking Tobacco: Never Smokeless Tobacco: Former Chew Tobacco Cessation:Counseling Given: Not Answered Alcohol Use Standard Drinks/Week Comments Not Currently 0 (1 standard drink = 0.6 oz pure alcohol) USED TO DRINK 30 BEERS PER WEEK BEFORE HIS RECENT SURGERY AUDIT-C Answer Date Recorded Q1: How often do you have a drink containing alcohol? Never 01/03/2024 Q2: How many drinks containi ng alcohol do you have on a typical day when you are drinking? Patient does not drink 4 Q3: How often do you have si x or more drinks on one occasion? Never 01/03/2024 Overall Financial Resource Strain (CARDIA) Answe r Date Recorded How hard is it for you to pa y for the very basics like food, housing, medical care, and heating? Not hard at all 01/03/2024 PHQ-2 Answer Date Recorded Patient Health Questionnaire-2 Score 0 03/31/2024 [facility] - Occupational Stress Questionnaire Answer Date Recorded Do you feel stress - tense, restless, nervous, or anxious, or unable to sleep at night because your mind is troubled all the time - these days? Not at all 01/03/2024 Hunger Vital Sign Answer Date Recorded Within the past 12 months, y ou worried that your food would run out before you got the money to buy more. Never true 01/03/20 24 Within the past 12 months, t he food you bought just didn't last and you didn't have money to get more. Never true 01/03/2024 PRAPARE - Transportation Answer Date Re corded In the past 12 months, has l ack of transportation kept you from medical appointments or from getting medications? No 12/16 In the past 12 months, has l ack of transportation kept you from meetings, work, or from getting things needed for daily living? No 01/03/2024 Housing Stability Vital Sign Answer Vladimir e Recorded In the last 12 months, was t here a time when you were not able to pay the mortgage or rent on time? No 01/03/2024 In the last 12 months, how many places have you lived? 1 01/03/2024 In the last 12 months, was t here a time when you did not have a steady place to sleep or slept in a chcf (including now)? No 01/03/2024 Sex and Gender Information Value Date Recorded Sex Assigned at Not on file Legal Sex Male 10:09 AM CDT Gender Identity Not on file Sexual Orientation Not on file Last Filed Vital Signs Vital Sign Reading Time Taken Comments Blood Pressure 132/74 02/08/2024 4:54 PM CDT Pulse 70 02/08/2024 4:54 PM CDT Temperature 36.1 C (97 F) 02/08/2024 3:45 PM CDT Respiratory Rate 14 02/08/2024 4:54 PM CDT Oxygen Saturation 98% 02/08/2024 4:54 PM CDT Inhaled Oxygen Concentration - - Weight 108.9 kg (240 lb) 03/31/2024 9:57 AM CDT Height 182.9 cm (6') 03/31/2024 9:57 AM CDT Body Mass Index 32.55 03/31/2024 9:57 AM CDT Plan of Treatment Health Maintenance Due Date Last Done Comments DAYDAY (AGES 45-75) - COLON CA SCREENING 1960 COLON MONITORING 1960 COLONOSCOPY - COLON CA SCREENING 1960 CT COLONOGRAPHY - COLON CA SCREENING 1960 Colorectal Cancer Screening 1960 FIT - COLON CA SCREENING 1960 FLEX SIG - COLON CA SCREENING 1960 HIV SCREENING 1975 HEPATITIS C SCREENING 03/19/1978 DTAP/TDAP/TD VACCINES (1 - Tdap) 1979 PNEUMOCOCCAL VACCINE 50+ (1 of 1 - PCV) 2010 ZOSTER VACCINE (1 of 2) 2010 DEPRESSION SCREENING 11/15/2024 02/18/2024 COVID-19 VACCINE (3 - 2024- season) 2025 04/30/2021, 04/09/2021 INFLUENZA VACCINE (#1) 2025 SCREENING FOR DIABETES 02/07/2027 , 01/14/2024, 01/13/2024, Additional history exists Respiratory Syncytial Virus (RSV) Vaccine Pt: or over 60 yrs (1 - 1-dose 75+ series) 2035 HEPATITIS B VACCINE Aged Out No longe r eligible based on patient's age to complete this topic HIB VACCINE Aged Out No longer eligi ble based on patient's age to complete this topic HPV VACCINE Aged Out No longer eligi ble based on patient's age to complete this topic MENINGOCOCCAL (Group B) VACCINE SHARED DECISION-MAKING Aged Out No longer eligible based on patient's age to complete this topic MENINGOCOCCAL GROUPS A/C/Y/W VACCINE Aged Out No longer eligible based on patient's age to complete this topic Medical Devices Implanted Type Area Digestion Operator Device Identifier Shelf Expiration Date Model / Serial / Lot Stent Esph 23mm 18.5fr 15.5cm 78cm 28mm Implanted:Qty : 1 on 01/04/2024 by Chava Sin MD at [facility] N/A: Esophagus [address] [employer] 01/24/2024 [id number] / / [id number] Procedures Procedure Name Priority Date/Time Associated Diagnosis Comments COMPREHENSIVE METABOLIC PANEL GIFTY 02/08/2024 11:02 AM CDT Esophageal perforation from Last 3 Months or Most Recently Relevant to Health Maintenance Results * (ABNORMAL) COMPREHENSIVE METABOLIC PANEL (02/08/2024 11:02 AM CDT) Glucose 109(H) 70 - 105 mg/dL 02/08/2024 11:35 AM CDT [facility] Sodium 137 136 - 145 mmol/L 02/08/2024 11:35 AM CDT [facility] Potassium 4.0 3.5 - 5.1 mmol/L 02/08/2024 11:35 AM CDT [facility] Chloride 108(H) 98 - 107 mmol/L 02/08/2024 11:35 AM CDT [facility] CO2 21(L) 22 - 29 mmol/L 02/08/2024 11:35 AM CDT [facility] Calcium 9.2 8.4 - 10.4 mg/dL 02/08/2024 11:35 AM CDT [facility] Anion Gap 8 6 - 16 mmol/L 02/08/2024 11:35 AM CDT [facility] BUN 14 7 - 26 mg/dL 02/08/2024 11:35 AM CDT [facility] Creatinine 0.80 0.72 - 1.25 mg/dL 02/08/2024 11:35 AM CDT [facility] Alkaline Phosphatase 114 40 - 150 U/L 02/08/2024 11:35 AM CDT [facility] ALT 16 0 - 55 U/L 02/08/2024 11:35 AM CDT [facility] AST 12 5 - 34 U/L 02/08/2024 11:35 AM CDT [facility] Protein Total 7.9 6.4 - 8.3 gm/dL 02/08/2024 11:35 AM CDT [facility] Albumin 3.6 3.4 - 5.0 gm/dL 02/08/2024 11:35 AM CDT [facility] Bilirubin Total 0.7 0.2 - 1.2 mg/dL 02/08/2024 11:35 AM CDT [facility] eGFR by CKD-EPI >90 >=90 mL/min/1.7 3 m2 02/08/2024 11:35 AM CDT [facility] Blood BLOOD SPECIMEN / Unknown Venipuncture / Unknown 02/08/2024 11:02 AM CDT 02/08/2024 11:18 AM CDT us Chava Sin MD LAB - CHEMISTRY ORDERABLES Kelly figueroa Result [facility] [address] [place] [address] from Last 3 Months or Most Recently Relevant to Health Maintenance Insurance [facility] [address] Advance Directives * Full Code (Latest Code Status on File) Date Activated Date Inactivated Comments 12/31/2023 10:10 PM 01/14/2024 12:55 PM Care Teams Felt Hat Mellowing Machine Operator Relationship Specialty Start Date End Date Kacy Estrada MD [address] [place] [id number] PCP - General Internal Medicine 06/26/19
--- OUTSIDE RECORDS SUMMARY | 2025-08-20 10:55 | XMS_ITS | Clinical Summary ---
Author Organization [facility] Address [address] [place] [id number] Care Team Providers Care Roll Or Tape Edge Machine Operator Name Role Phone Kacy Estrada MD Primary Care Provider [phone] Allergies No known active allergies Medications allopurinoL (ZYLOPRIM) 300 mg tablet Take 300 mg by mouth daily 05/25/2019 Active simvastatin (ZOCOR) 40 mg tablet Take 40 mg by mouth daily 06/13/2019 Active omeprazole (PriLOSEC) 40 mg capsule Take 40 mg by mouth daily 05/23/2019 Active lisinopriL (PRINIVIL,ZESTR IL) 10 mg tablet Take 10 mg by mouth daily 05/15/2019 Active ergocalciferol (VITAMIN D) 50,000 unit capsule TAKE 1 CAPSULE BY MOUTH EVERY 15 DAYS 04/15/2019 Active loratadine (CLARITIN) 10 mg tablet Take 10 mg by mouth daily 02/24/2021 Active metoprolol XL (TOPROL-XL) 50 mg extended release tablet Take 50 mg by mouth daily 02/09/2021 Active Symbicort 160-4.5 mcg/actuation inhaler TAKE 2 PUFFS BY MOUTH TWICE A DAY 02/24/2021 Active hydrALAZINE (APRESOLINE) 50 mg tablet 02/28/2021 Active benzonatate (TESSALON) 100 mg capsule 03/31/2021 Active methylPREDNISol one (MEDROL DOSEPACK) 4 mg Dosepack 03/31/2021 Active tamsulosin (FLOMAX) 0.4 mg extended release capsule Take 1 capsule (0.4 mg total) by mouth daily 30 capsule 11 04/03/2021 Active Active Problems No known active problems Social History Tobacco Use Types Packs/Day Years Used Date Smoking Tobacco: Every Day Personal Safety Answer Date Recorded Getting School Help Needed Not on file 11/14 Sex and Gender Information Value Date Recorded Sex Assigned at Not on file Legal Sex Male 7:32 PM 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
[2025-08-20 11:10] VITALS: BP 129/74; PULSE 67; RESP 14; TEMP 36.7; O2SAT 99
[2025-08-20 11:32] VITALS: BP 112/66; PULSE 68; RESP 20; O2SAT 98
--- NOTE | 2025-08-20 12:22 | ECG_ITS ---
Test Date: 2025-08-20 12:29:12 Measurements Intervals [place] Rate: 55 P: 2 HI: 183 QRS: 29 QRSD: 85 T: 22 QT: 412 QTc: 396 Interpretive Statements SINUS BRADYCARDIA BORDERLINE ECG No previous ECG available for comparison Electronically Signed On 08-20-2025 13:04:36 CDT by Madi Martinez D.O.
--- NOTE | 2025-08-20 12:27 | ED.GENADULT ---
HPI - General Adult General Chief complaint: Unspecified Stated complaint: throat clogged up for 3 weeks, able to drink Time Seen by Provider: 08/20/25 12:09 Source: patient Mode of arrival: ambulatory Limitations: no limitations History of Present Illness HPI narrative: 65-year-old with a history of hypertension, hyperlipidemia , GERD, esophageal stricture presents to the ER with the complaints of having dysphagia to solids for past 2 weeks however for the past 2 days symptoms have been getting worse he is only able to swallow liquids. Has pain in the epigastric area. Patient also mentioned that 2 years ago had esophageal tear he was flown to [facility] where he had a stent put in for 3 weeks and was later told that he had and no esophageal rupture. Denies any shortness of breath. Onset (ago): week(s) (2) Location: chest Radiation: non-radiation Severity: moderate Quality: aching Pain Consistency: constant Relieving factors: none Exacerbating factors: none and eating Associated symptoms: denies other symptoms Related Data Home Medications ?Medication ?Instructions ?Recorded ?Confirmed ?Last Taken ?Type allopurinol 300 mg tablet 300 mg PO DAILY 03/22/23 08/03/23 06/07/23 04:30 History ergocalciferol (vitamin D2) 1,250 1,250 mcg PO WEEKLY 03/22/23 08/03/23 06/05/23 04:30 History mcg (50,000 unit) capsule metoprolol succinate 50 mg 25 mg PO DAILY 03/22/23 08/03/23 06/07/23 04:30 History tablet,extended release 24 hr [place] Xl 2 tab-cap DAILY 07/22/23 08/03/23 Unknown History aspirin 81 mg tablet,delayed 81 mg PO DAILY 07/22/23 08/03/23 07/27/23 History release Held on 08/04/23. Instructions: Resume on 08/11/23. budesonide-formoterol HFA 160 2 puff inhalation Q12H PRN Wheezing 07/22/23 08/03/23 Unknown History mcg-4.5 mcg/actuation aerosol inhaler (Symbicort) folic acid 1 mg tablet 1 mg PO DAILY 07/22/23 08/03/23 Unknown History ibuprofen 200 mg capsule 400 mg PO BID PRN Pain 07/22/23 08/03/23 Unknown History Held on 08/04/23. Instructions: Resume on 08/11/23. pantoprazole 40 mg tablet,delayed 40 mg PO DAILY 07/22/23 08/03/23 Unknown History release simvastatin 20 mg tablet 20 mg DAILY 07/22/23 08/03/23 Unknown History Allergies Allergy/AdvReac Type Severity Reaction Status Date / Time No Known Allergies Allergy Verified 08/20/25 11:12 Review of Systems Review of Systems: All systems reviewed & are unremarkable except as noted in HPI and below Constitutional: Constitutional: Reports no additional constitutional complaints Eyes: Eyes: Reports no additional eye complaints ENT: Reports system reviewed and no additional complaints, except as documented Cardiovascular: Cardiovascular: Reports no additional cardiovascular complaints Respiratory: Respiratory: Reports no additional respiratory complaints Gastrointestinal: Gastrointestinal: Reports as per HPI Musculoskeletal: Musculoskeletal: Reports no additional musculoskeletal complaints Neurologic: Reports system reviewed and no additional complaints, except as documented [facility] Past Medical History Medical History Prostate cancer (03/2023) Esophageal stricture Gastroesophageal reflux disease Gout Asthma Hyperlipidemia Hypertension Surgical History Surgical History History of tonsillectomy History of meniscectomy of right knee History of prostate biopsy (03/2023) History of vein stripping History of total right hip arthroplasty (06/2018) History of cervical spinal surgery (02/2023) C5-C7 fusion. Family History Family History Mother Peripheral artery disease Hypertension Father Epilepsy Other Colon polyp Social History Social History Social History: Surrogate medical decision maker: Melissa Cisneros, mother. Code status: Full code. Smoking status: Never smoker Tobacco type: smokeless tobacco Smokeless tobacco user: chewing tobacco Second hand tobacco smoke exposure: No Additional smoking assessment comments: CHEWING TOBACCO DAYILY USE Alcohol intake: current Drinks per week: 30 Alcohol use details: BEER Substance use: current Substance use type: marijuana Other substance usage details: edibles Last use: 06/2023 Lack of Transportation: No Lack of Food: Never True Current Housing: I Have Housing Concerned About Future Housing: No Difficulty Paying Gas/Electric Bills: No Difficulty Paying for Meds: No Currently Unemployed: No Education: Decline to Answer Difficulty w/ Childcare or Family Care: No Living arrangements: alone Spiritual care concerns: No Exam Narrative: GENERAL: Well-appearing, well-nourished, and in no acute distress. HEAD: Normocephalic, atraumatic. EYES: PERRLA and EOMI. ENT: Nares clear, no rhinorrhea or epistaxis. Mucous membranes moist. NECK: Supple. CHEST: Clear to auscultation. No respiratory distress. HEART: Regular rate and rhythm. No murmur heard. Normal peripheral pulses. ABDOMEN: Soft, nontender, nondistended, normal active bowel sounds. EXTREMITIES: Normal range of motion. No edema. SKIN: Warm, dry, no rash. NEURO: No focal deficits. Alert and oriented x3. PSYCH: Normal mood and affect. Course Course Emergency Course: discussed with Dr. Christy recommended admission will do EGD in the morning. Informed patient about his lab work, chest x-ray findings agreeable with admission. Vital Signs Vital signs: Vital Signs Temperature 36.3 C L 08/20/25 10:15 Pulse Rate 67 08/20/25 10:15 Respiratory Rate 17 08/20/25 10:15 Blood Pressure 135/73 08/20/25 10:15 Pulse Oximetry 100 08/20/25 10:15 Temperature 36.7 C 08/20/25 11:10 Pulse Rate 68 08/20/25 11:32 Respiratory Rate 20 08/20/25 11:32 Blood Pressure 112/66 08/20/25 11:32 Pulse Oximetry 98 08/20/25 11:32 Oxygen Delivery Room Air 08/20/25 11:10 Medical Decision Making Differential Diagnosis Differential Diagnosis: GERD , Esophageal stricture Vital Signs Vital Signs: Vital Signs Temperature 36.3 C L 08/20/25 10:15 Pulse Rate 67 08/20/25 10:15 Respiratory Rate 17 08/20/25 10:15 Blood Pressure 135/73 08/20/25 10:15 Pulse Oximetry 100 08/20/25 10:15 Temperature 36.7 C 08/20/25 11:10 Pulse Rate 68 08/20/25 11:32 Respiratory Rate 20 08/20/25 11:32 Blood Pressure 112/66 08/20/25 11:32 Pulse Oximetry 98 08/20/25 11:32 Oxygen Delivery Room Air 08/20/25 11:10 Lab Data 08/20/25 12:26 08/20/25 12:26 Labs: Lab Results 08/20/25 Range/Units 12:26 WBC 6.8 (4.5-10.0) K/mm3 RBC 4.50 L (4.6-6.20) M/mm3 Hgb 14.7 (14.0-18.0) g/dL Hct 43.7 (42.0-52.0) % MCV 97.1 (80-100) fl MCH 32.7 (26-34) pg MCHC 33.6 (32-36) g/dl RDW 13.5 (11.5-14.5) % Plt Count 206 (150-375) k/mm3 MPV 11.5 H (7.4-10.4) fl Immature Gran % (Auto) 0.3 (0-0.5) % Neut % (Auto) 56.4 (45.5-73.1) % Lymph % (Auto) 32.7 (18.3-44.2) % Wolfe % (Auto) 8.4 (2.6-8.5) % Eos % (Auto) 1.6 (0-4.4) % Baso % (Auto) 0.6 (0.2-1.2) % Lymph # (Auto) 2.23 (0.9-3.2) K/mm3 Wolfe # (Auto) 0.6 (0.1-0.6) K/mm3 Eos # (Auto) 0.1 (0-0.3) K/mm3 Baso # (Auto) 0.0 (0.0-0.1) K/mm3 Abs Immat Gran (auto) 0.02 (0.00-0.031) K/mm3 Absolute Neuts (auto) 3.8 (1.3-6.7) K/mm3 Absolute Nucleated RBC 0.000 (0.0-0.012) K/mm3 Nucleated RBC % 0.0 (0.0-0.2) % Sodium 138 (137-145) mmol/L Potassium 4.4 (3.4-5.0) mmol/L Chloride 105 (98-107) mmol/L Carbon Dioxide 24 (22-30) mmol/L Anion Gap 9 (4-12) mmol/L BUN 11 D (9-20) mg/dL Creatinine 0.77 (0.7-1.3) mg/dL Estim Creat Clear Calc 107 ml/min Estimated GFR > 60 (59 - ) Glucose 102 (65-110) mg/dL Calcium 8.9 (8.4-10.2) mg/dL Total Bilirubin 0.7 (0.2-1.3) mg/dL AST 36 (17-59) U/L ALT 42 (6-50) U/L Alkaline Phosphatase 70 (38-126) U/L Total Protein 7.4 (6.3-8.2) g/dL Albumin 4.3 (3.5-5.1) g/dL Imaging Data Radiologist's impression: ITS Impressions Chest X-Ray 08/20/25 12:38 Impression: No acute cardiopulmonary abnormality. ECG Data EKG #1: ECG completion date: 08/20/25 ECG completion time: 12:29 EKG Interpretation: bradycardia (55), no ectopy, no ST changes, normal QRS and no acute changes Discharge Plan Discharge Clinical Impression: Dysphagia Patient Disposition: Still a Patient Condition: Stable Patient Language: [place] Prescriptions: No Action omeprazole 40 mg capsule,delayed release(DR/EC) 40 mg PO DAILY Qty: 30 0RF metoprolol succinate 50 mg Tablet Extended Release 24 Hr 25 mg PO DAILY allopurinol 300 mg Tablet 300 mg PO DAILY ergocalciferol (vitamin D2) 1,250 mcg (50,000 unit) capsule 1,250 mcg PO WEEKLY Rx Instructions: wednesday tamsulosin 0.4 mg Capsule 0.4 mg PO QAM 30 Days Qty: 30 0RF ibuprofen 200 mg Capsule 400 mg PO BID PRN (Reason: Pain) aspirin 81 mg Tablet,Delayed Release (Dr/Ec) 81 mg PO DAILY pantoprazole 40 mg tablet,delayed release (DR/EC) 40 mg PO DAILY simvastatin 20 mg tablet 20 mg DAILY folic acid 1 mg Tablet 1 mg PO DAILY budesonide-formoterol [Symbicort] 160-4.5 mcg/actuation Hfa Aerosol Inhaler 2 puff INHALATION Q12H PRN (Reason: Wheezing) [place] Xl 2 tab-cap DAILY docusate sodium 100 mg tablet 100 mg PO BID Qty: 20 0RF hyoscyamine sulfate [Anaspaz] 0.125 mg Tablet,Disintegrating 0.125 mg sublingual Q4H PRN (Reason: Bladder Spasm) 5 Days Qty: 20 0RF cephalexin 500 mg capsule 500 mg PO Q12H Qty: 14 0RF Follow-up/Referrals: Natalie,Kacy Kat MD [Primary Care Provider, Unknown]
[2025-08-20 12:31] LABS: Hematocrit 43.7 % (42.0-52.0); Hemoglobin 14.7 g/dL (14.0-18.0); Immature Granulocyte Percent A 0.3 % (0-0.5); Lymphocytes Absolute Auto 2.23 K/mm3 (0.9-3.2); Mean Corpuscular HGB Conc 33.6 g/dl (32-36); Mean Corpuscular Hemoglobin 32.7 pg (26-34); Mean Corpuscular Volume 97.1 fl (80-100); Nucleated Red Blood Cells Absolute Auto 0.000 K/mm3 (0.0-0.012); Nucleated Red Blood Cells Perc 0.0 % (0.0-0.2); Platelet Count Result 206 k/mm3 (150-375); Red Blood Count 4.50 M/mm3 (4.6-6.20); White Blood Count 6.8 K/mm3 (4.5-10.0)
[2025-08-20] MEDS: SODIUM CHLORIDE 0.9% IV 1,000 ML 150 ML IV CONT (12:33)
[2025-08-20 12:51] LABS: Alanine Aminotransferase 42 U/L (6-50); Albumin Level 4.3 g/dL (3.5-5.1); Alkaline Phosphatase 70 U/L (38-126); Anion Gap 9 mmol/L (4-12); Aspartate Amino Transferase 36 U/L (17-59); Bilirubin,Total 0.7 mg/dL (0.2-1.3); Blood Urea Nitrogen 11 mg/dL (9-20); Calcium 8.9 mg/dL (8.4-10.2); Carbon Dioxide 24 mmol/L (22-30); Chloride 105 mmol/L (98-107); Estimated CRCL calculation 107 ml/min; Estimated Glomerular Filt Rate > 60; Glucose 102 mg/dL (65-110); Potassium 4.4 mmol/L (3.4-5.0); Sodium 138 mmol/L (137-145); Total Protein 7.4 g/dL (6.3-8.2)
--- NOTE | 2025-08-20 14:14 | PM.IMHP ---
H&P: HPI History of Present Illness Date/Time: 08/20/25 14:14 Chief Complaint: Dysphagia Narrative: 65 y/o M with a PMH of HTN, hyperlipidemia, GERD, prostate ca s/p prostatectomy, esophageal stricture presented to the ED on 08/20/25 with complaints of dysphagia with solids for the past 2 weeks. ?Symptoms worsened over the past 2 days to the point he is only able swallow liquids. ?Endorses pain in the epigastric area described as aching and non-radiating. Patient had esophageal tear and he was flown to [facility] on 12/31/23 where he had an esophageal stent put in for 3 weeks and was later told that he had and no esophageal rupture. Stent has since been removed. Denies shortness of breath, cough, fevers. Initial vitals 135/73, HR 67, resp 17, temp 97.4 F, O2 100% on RA. ?CXR read no acute cardiopulmonary abnormalities. ?NS started at 150mL/hr. ?No leukocytosis or electrolyte derangement. Review of Systems Review of Systems: All systems reviewed & are unremarkable except as noted in HPI and below PMFSH Past Medical History Medical History Prostate cancer (03/2023) Esophageal stricture Gastroesophageal reflux disease Gout Asthma Hyperlipidemia Hypertension Surgical History Surgical History History of tonsillectomy History of meniscectomy of right knee History of prostate biopsy (03/2023) History of vein stripping History of total right hip arthroplasty (06/2018) History of cervical spinal surgery (02/2023) C5-C7 fusion. Family History Family History Mother Peripheral artery disease Hypertension Father Epilepsy Other Colon polyp Social History Social History Social History: Surrogate medical decision maker: Melissa Cisneros, mother. Code status: Full code. Smoking status: Never smoker Tobacco type: smokeless tobacco Smokeless tobacco user: chewing tobacco Second hand tobacco smoke exposure: No Additional smoking assessment comments: CHEWING TOBACCO DAYILY USE Alcohol intake: current Drinks per week: 30 Alcohol use details: BEER Substance use: current Substance use type: marijuana Other substance usage details: edibles Last use: 06/2023 Lack of Transportation: No Lack of Food: Never True Current Housing: I Have Housing Concerned About Future Housing: No Difficulty Paying Gas/Electric Bills: No Difficulty Paying for Meds: No Currently Unemployed: No Education: Decline to Answer Difficulty w/ Childcare or Family Care: No Living arrangements: alone Spiritual care concerns: No Meds Home Medications and Allergies Home Medications ?Medication ?Instructions ?Recorded ?Confirmed ?Type omeprazole 40 mg capsule,delayed 40 mg PO DAILY #30 caps 07/05/22 08/20/25 Rx release allopurinol 300 mg tablet 300 mg PO DAILY 03/22/23 08/20/25 History metoprolol succinate 50 mg 25 mg PO DAILY 03/22/23 08/20/25 History tablet,extended release 24 hr folic acid 1 mg tablet 1 mg PO DAILY 07/22/23 08/20/25 History simvastatin 20 mg tablet 20 mg PO DAILY 07/22/23 08/20/25 History lisinopril 10 mg tablet 10 mg PO DAILY 08/20/25 08/20/25 History meloxicam 7.5 mg tablet 7.5 mg PO DAILY 08/20/25 08/20/25 History Allergies Allergy/AdvReac Type Severity Reaction Status Date / Time No Known Allergies Allergy Verified 08/20/25 11:12 Vital Signs Vital Signs - 24 hr 08/20/25 10:15 08/20/25 11:10 08/20/25 11:32 Temperature 97.4 F L 98.0 F Pulse Rate 67 67 68 Respiratory Rate 17 14 20 Blood Pressure 135/73 129/74 112/66 Pulse Oximetry 100 99 98 Oxygen Delivery Room Air Exam Narrative: GENERAL: Well-appearing, well-nourished, and in no acute distress. HEAD: Normocephalic, atraumatic. EYES: PERRLA ENT: Nares clear, no rhinorrhea or epistaxis. Mucous membranes moist. NECK: Supple. trachea midline CHEST: Clear to auscultation. No respiratory distress. HEART: RRR. No murmur heard. Normal peripheral pulses. ABDOMEN: Soft, nontender, nondistended, normal active bowel sounds. EXTREMITIES: Normal range of motion. No edema. SKIN: Warm, dry, no rash. NEURO: No focal deficits. A&Ox4. PSYCH: Normal mood and affect. H&P: Results Labs Labs: Short CBC 08/20/25 Range/Units 12:26 WBC 6.8 (4.5-10.0) K/mm3 Hgb 14.7 (14.0-18.0) g/dL Hct 43.7 (42.0-52.0) % Plt Count 206 (150-375) k/mm3 BMP 08/20/25 12:26 Sodium 138 Potassium 4.4 Chloride 105 Carbon Dioxide 24 BUN 11 D Creatinine 0.77 Glucose 102 Calcium 8.9 Liver Function 08/20/25 Range/Units 12:26 Total Bilirubin 0.7 (0.2-1.3) mg/dL AST 36 (17-59) U/L ALT 42 (6-50) U/L Alkaline Phosphatase 70 (38-126) U/L Albumin 4.3 (3.5-5.1) g/dL Assessment and Plan Assessment and plan (1) Dysphagia: Qualifiers: Dysphagia type: esophageal phase Qualified Code(s): R13.19 - Other dysphagia Code(s): R13.10 - Dysphagia, unspecified Status: Acute Assessment and Plan: Patient present with this dysphagia for the past 2 weeks has worsened over the past 2 days. He is only able to get liquids down. PMH significant for dysphagia for about 15 years with a hx of esophageal stent in December 2023 that was placed for 3 weeks. Patient denies any previous dilatation of his esophagus. -GI consult -Clears liquids -NPO at NH for EGD -pantoprazole 40 mg daily (2) Hypertension: Qualifiers: Hypertension type: primary hypertension Qualified Code(s): I10 - Essential (primary) hypertension Code(s): I10 - Essential (primary) hypertension Status: Chronic Assessment and Plan: -currently stable -Can resume home meds after EGD (3) Alcohol abuse: Code(s): F10.10 - Alcohol abuse, uncomplicated Status: Acute Assessment and Plan: -Reports he is a daily beer drinker but denies history of withdrawal Plan Diet: clears- NPO at NH GI prophylaxis: Pantoprazole 40 mg daily DVT prophylaxis: SCD's lines/drains: PIV Fluids: NS @ 150 mL/hr started in ED Code status: Full code Hospitalist MIPS Advance Care Plan I have confirmed that the patient's Advanced Care Plan is present, code status is documented, or surrogate decision maker is listed in patient medical record.: Yes
--- OUTSIDE RECORDS SUMMARY | 2025-08-20 14:28 | XMS_ITS | Clinical Summary ---
Author Organization [facility] [employer] Address [address] [place] [address] Care Team Providers Care Parquet Floor Layer'S Helper Name Role Phone Kacy Estrada MD Primary Care Provider [phone] Source Comments [facility] [employer],non-owned Affiliates and Associated Physician Practices is amultiple site organization consisting of ambulatory clinics and hospital sitesin [place], [place], [place] and [place]. This disclosure is being madepursuant to the Care Everywhere program and may not contain all information available regarding this patient. Last updated 18.[employer] Allergies No known active allergies Medications * Be aware that medications may not be up to date on this document. Alwaysverify current medications with the patient. allopurinol (ZYLOPRIM) 300 MG tablet Take 1 (one) tablet by mouth once daily 1 9 Active vitamin D, ergocalciferol, (DRISDOL) 62541 units capsule Take 1 (one) capsule by [...] Patient not taking.Reported on 02/04/2024 HYDROcodone-acet aminophen ([place]) 10-325 MG tabletIndication s:Esophageal perforation Take 1 [...] Recorded Patient Health Questionnaire-2 Score 0 03/31/2024 [facility] - Occupational Stress [...] place to sleep or slept in a intermediate (including now)? No 01/03/2024 Sex and Gender [...] this topic Medical Devices Implanted Type Area Wet Process Technician Device Identifier Shelf Expiration Date Model / Serial / Lot Stent Esph 23mm 18.5fr 15.5cm 78cm 28mm Implanted:Qty : 1 on 01/04/2024 by Chava Sin MD at [facility] N/A: Esophagus Easiest Credit Card To Get Approved For Scimed 01/24/2024 [id number] / / [id number] Procedures Procedure Name Priority Date/Time Associated Diagnosis Comments COMPREHENSIVE METABOLIC PANEL GIFTY 02/08/2024 11:02 AM CDT Esophageal perforation from Last 3 Months or Most Recently Relevant to Health Maintenance Results * (ABNORMAL) COMPREHENSIVE METABOLIC PANEL (02/08/2024 11:02 AM CDT) Glucose 109(H) 70 - 105 mg/dL 02/08/2024 11:35 AM CDT [facility] Sodium 137 136 - 145 mmol/L 02/08/2024 11:35 AM CDT [facility] Potassium 4.0 3.5 - 5.1 mmol/L 02/08/2024 11:35 AM CDT [facility] Chloride 108(H) 98 - 107 mmol/L 02/08/2024 11:35 AM CDT [facility] CO2 21(L) 22 - 29 mmol/L 02/08/2024 11:35 AM CDT [facility] Calcium 9.2 8.4 - 10.4 mg/dL 02/08/2024 11:35 AM CDT [facility] Anion Gap 8 6 - 16 mmol/L 02/08/2024 11:35 AM CDT [facility] BUN 14 7 - 26 mg/dL 02/08/2024 11:35 AM CDT [facility] Creatinine 0.80 0.72 - 1.25 mg/dL 02/08/2024 11:35 AM CDT [facility] Alkaline Phosphatase 114 40 - 150 U/L 02/08/2024 11:35 AM CDT [facility] ALT 16 0 - 55 U/L 02/08/2024 11:35 AM CDT [facility] AST 12 5 - 34 U/L 02/08/2024 11:35 AM CDT [facility] Protein Total 7.9 6.4 - 8.3 gm/dL 02/08/2024 11:35 AM CDT [facility] Albumin 3.6 3.4 - 5.0 gm/dL 02/08/2024 11:35 AM CDT [facility] Bilirubin Total 0.7 0.2 - 1.2 mg/dL 02/08/2024 11:35 AM CDT [facility] eGFR by CKD-EPI >90 >=90 mL/min/1.7 3 m2 02/08/2024 11:35 AM CDT [facility] Blood BLOOD SPECIMEN / Unknown Venipuncture / Unknown 02/08/2024 11:02 AM CDT 02/08/2024 11:18 AM CDT us Chava Sin MD LAB - CHEMISTRY ORDERABLES Kelly figueroa Result [facility] [address] [place] [address] from Last 3 Months or Most Recently Relevant to Health Maintenance Insurance [facility] [place] [address] Advance Directives * Full Code (Latest Code Status on File) Date Activated Date Inactivated Comments 12/31/2023 10:10 PM 01/14/2024 12:55 PM Care Teams Parquet Floor Layer'S Helper Relationship Specialty Start Date End Date Kacy Estrada MD [address] [place] [id number] PCP - General Internal Medicine 06/26/19
--- OUTSIDE RECORDS SUMMARY | 2025-08-20 14:28 | XMS_ITS | Clinical Summary ---
Author Organization [facility] Address [address] [place] [address] Care Team Providers Care Habitat Management Coordinator Name Role Phone Kacy Estrada MD Primary Care Provider [phone] Quinn Mondragon DO Unavailable [phone] Allergies No known active allergies Medications simvastatin 40 MG tablet Take 1 tablet (40 mg total) by mouth daily. 06/25/20 21 Active omeprazole 40 MG capsule Take 1 capsule (40 mg total) by mouth daily. 06/26/20 21 Active metoprolol succinate ER 50 MG 24 hr tablet Take 1 tablet (50 mg total) by mouth daily. 07/19/20 21 Active hydrALAZINE 50 MG tablet 08/26/20 21 Active folic acid 1 MG tablet Take 1 tablet (1 mg total) by mouth daily. 03/14/20 21 Active fluticasone propionate 50 MCG/ACT nasal spray 1 spray by Each Nostril route daily. 03/02/20 21 Active vitamin D2, ergocalciferol, 11974 UNITS capsule Take 1 capsule (1.25 mg total) by mouth every 7 days. weekend 08/25/20 21 Active allopurinol 300 MG tablet Take 1 tablet (300 mg total) by mouth daily. 08/25/20 21 Active albuterol sulfate HFA 108 (90 Base) MCG/ACT inhaler 07/11/20 21 Active lisinopril 10 MG tablet Take 1 tablet (10 mg total) by mouth 2 (two) times a day. 01/24/20 22 Active pantoprazole EC 40 MG tablet Take 1 tablet (40 mg total) by mouth daily. 09/14/20 21 Active tamsulosin (FLOMAX) 0.4 MG Cap Take 1 capsule (0.4 mg total) by mouth daily. 04/29/20 Active BONE STIMULATOR, DME,Indications :Cervical spine instability Wear 4 hours daily. Can break up into multiple sessions totaling 4 hours. 1 Device 01/06/20 Active HYDROcodone-bharat taminophen (NORCO) 5-325 MG tabletIndicatio ns:Acute Pain < 7 Day Supply Take 1-2 tablets by mouth every 6 (six) hours as needed for Pain. Indications: Acute Pain < 7 Day Supply 50 tablet 02/19/20 Active Additional Information Patient not taking.Reported on 04/09/2023 senna-docusate (SENOKOT-S) 8.6-50 MG tabletIndicatio ns:S/P cervical spinal fusion Take 1 tablet by mouth 2 (two) times daily as needed. 20 tablet 02/19/20 Active methylPREDNISol one, VENANCIO, (MEDROL DOSEPAK) 4 MG tabletIndicatio ns:S/P cervical spinal fusion Take 1 tablet (4 mg total) by mouth see administration instructions. Follow package directions 1 each 02/27/20 Active ALPRAZolam (XANAX) 1 MG tablet Take 1 tablet (1 mg total) by mouth. 05/12/20 Active SYMBICORT 160-4.5 MCG/ACT inhaler Inhale 2 puffs into the lungs. 06/20/20 Active hyoscyamine (LEVSIN) 0.125 MG TABLET DISPERSIBLE Take 1 tablet (0.125 mg total) by mouth every 4 (four) hours as needed. 08/04/20 Active Active Problems Problem Noted Date Diagnosed Date Adhesive capsulitis of left shoulder 11/25/2023 Chronic left shoulder pain 09/27/2023 Bilateral carpal tunnel syndrome 07/29/2023 Cubital tunnel syndrome on left 07/29/2023 Myofascial pain 02/26/2023 S/P cervical spinal fusion 02/17/2023 Encounter related to worker's compensation claim 02/17/2023 Myelopathy ([facility]) 01/06/2023 Chewing tobacco nicotine dependence without comp lication 01/06/2023 Foraminal stenosis of cervical region 01/06/2023 Other cervical disc degenera tion, unspecified cervical region 02/06/2022 Tendinopathy of left rotator cuff 09/04/2021 Osteoarthritis of left acromioclavicular joint 1 Cervical radiculopathy 09/04/2021 Resolved Problems Problem Noted Date Diagnosed Date Resolved Date Spinal stenosis of cervical region 02/06/2022 11/29/2023 Family History Medical History Relation Comments Epilepsy Father Hypertension Father No Known Problems Maternal Grandfather Diabetes Maternal Grandmother Diabetes Maternal Uncle Hypertension Mother No Known Problems Paternal Grandfather No Known Problems Paternal Grandmother Stomach issue Sister 1 Relation Status Comments Father Maternal Grandfather Maternal Grandmother Maternal Uncle Mother Alive Paternal Grandfather Paternal Grandmother Sister 1 Alive Sister 2 Alive Social History Tobacco Use Types Packs/Day Years Used Date Smoking Tobacco: Never Smokeless Tobacco: Former Snuff Quit: 2021 Tobacco Cessation:Counseling Given: No Alcohol Use Standard Drinks/Week Comments Yes 0 (1 standard drink = 0.6 oz pur e alcohol) MEENA to family and marriage counsellor, 30 pk/week Humiliation, Afraid, Rape, and Kick questionnair e Answer Date Recorded Within the last year, have y ou been afraid of your partner or ex-partner? No 02/17/2023 Within the last year, have y ou been humiliated or emotionally abused in other ways by your partner or ex-partner? No Within the last year, have y ou been kicked, hit, slapped, or otherwise physically hurt by your partner or ex-partner? No 02/17/2023 Within the last year, have y ou been raped or forced to have any kind of sexual activity by your partner or ex-partner? No 02/17/2023 Overall Financial Resource Strain (CARDIA) Answe r Date Recorded How hard is it for you to pa y for the very basics like food, housing, medical care, and heating? Not hard at all 02/17/2023 PHQ-2 Answer Date Recorded Patient Health Questionnaire-2 Score 0 11/25/2023 [facility] Occupat ional Health - Occupational Stress Questionnaire Answer Date Recorded Do you feel stress - tense, restless, nervous, or anxious, or unable to sleep at night because your mind is troubled all the time - these days? Not at all 02/17/2023 Exercise Vital Sign Answer Date Recorde d On average, how many days pe r week do you engage in moderate to strenuous exercise (like a brisk walk)? 0 days 02/17/2023 On average, how many minutes do you engage in exercise at this level? 0 min 02/17/2023 Hunger Vital Sign Answer Date Recorded Within the past 12 months, y ou worried that your food would run out before you got the money to buy more. Never true 02/18/20 23 Within the past 12 months, t he food you bought just didn't last and you didn't have money to get more. Never true 02/17/2023 PRAPARE - Transportation Answer Date Re corded In the past 12 months, has l ack of transportation kept you from medical appointments or from getting medications? No 03/2023 In the past 12 months, has l ack of transportation kept you from meetings, work, or from getting things needed for daily living? No 02/17/2023 Housing Stability Vital Sign Answer Vladimir e Recorded In the last 12 months, was t here a time when you were not able to pay the mortgage or rent on time? No 02/17/2023 In the last 12 months, how many places have you lived? 1 02/17/2023 In the last 12 months, was t here a time when you did not have a steady place to sleep or slept in a correction (including now)? No 02/17/2023 Sex and Gender Information Value Date Recorded Sex Assigned at Not on file Legal Sex Male 7:24 PM CDT Gender Identity Not on file Sexual Orientation Not on file Last Filed Vital Signs Vital Sign Reading Time Taken Comments Blood Pressure 132/84 01/24/2024 1:02 PM CDT Pulse 85 01/24/2024 1:02 PM CDT Temperature 36.3 C (97.3 F) 01/24/2024 1:02 PM CDT Respiratory Rate 18 11/12/2023 8:47 AM OUTSIDE DELIVERER Oxygen Saturation 98% 01/24/2024 1:02 PM CDT Inhaled Oxygen Concentration - - Weight 107 kg (236 lb) 01/24/2024 1:02 PM CDT Height 182.9 cm (6') 01/24/2024 1:02 PM CDT Body Mass Index 32.01 01/24/2024 1:02 PM CDT Plan of Treatment Health Maintenance Due Date Last Done Comments Colorectal Cancer Screening Colonoscopy (10 Years) 1960 Hepatitis C 1978 DTaP, Tdap and Td Vaccines ( 1 - Tdap) 1979 Pneumococcal Vaccine: 50+ Years (1 of 1 - PCV) 2010 Zoster Vaccines (1 of 2) 2010 PHQ-2 (Physician Mora) 11/15/2024 11/25/2023 COVID-19 Vaccine (3 - 2024-2 6 season) 2025 04/30/2021, 04/09/2021 Influenza Adult (#1) 2025 RSV Immunization or 60+ Years (1 - 1-dose 75+ series) 2035 Meningococcal B Vaccine Aged Out No l onger eligible based on patient's age to complete this topic Meningococcal Vaccine Aged Out No rohit fei eligible based on patient's age to complete this topic RSV Immunizations Under 20 Months Aged Out No longer eligible b ased on patient's age to complete this topic Goals Goal Patient Goal Type Associated Problems Recent Progress Patient-Stated? Author Health - patient able to perform ADLs independently Lifestyle No Chanda wright, Garret Acosta, RN Medical Devices Implanted Type Area Certified Solid Waste Facility Operator Device Identifier Shelf Expiration Date Model / Serial / Lot Graft Bone Bio4 1ml - [id number] Implanted:Qt y: 1 on 02/17/2023 by Michael Ortiz MD at [facility] Bone N/A: Spine Cervical ROWENA CRANIOMAXILLOFACIAL - DIV ROWENA CO 01/10/2026 [id number] / [id number] / Description:C5-C6, C6-C7 ACD F UNIT#- [id number] PART # - [id number] Hooper 42mm 2 Level Plate Implanted:Qt y: 1 on 02/17/2023 by Michael Ortiz MD at [facility] Plate N/A: Spine Cervical ROWENA SPINE - DIV ROWENA ZACK [id number] / / Description:C5-C6, C6-C7 FUS ION 4*[address] Hcano Screw Implanted:Qt y: 6 on 02/17/2023 by Michael Ortiz MD at [facility] Screw N/A: Spine Cervical ROWENA SPINE - DIV ROWENA ZACK [id number] 16CA / / [place] Interbody System Cervical Interbody Implanted:Qt y: 2 on 02/17/2023 by Michael Ortiz MD at [facility] N/A: Spine Cervical ROWENA SPINE - DIV ROWENA ZACK 10/20/2027 [id number] / / [id number] Description:c5-c6 and c6-c7 Explanted Type Area Certified Solid Waste Facility Operator Device Identifier Shelf Expiration Date Model / Serial / Lot Distration Pin 12mm - [id number] Explanted:Qty: 1 on 02/17/2023 by Michael Ortiz MD at [facility] Pin N/A: Spine Cervical [employer] [id number]-[id number] / / Additional Health Concerns Infection Onset Date Last Indicated 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 Ely Lauglhin Dos 07/28/2021--Present IS & UB4 * Full Code (Latest Code Status on File) Date Activated Date Inactivated Comments 02/17/2023 3:10 PM 02/18/2023 4:23 PM Care Teams Habitat Management Coordinator Relationship Specialty Start Date End Date Kacy Estrada MD [address] [place] [address] PCP - General INTERNAL MEDICINE 09/04/21 Quinn Mondragon DO [address] [facility] [address] [place] [address] OCCUPATIONAL MEDICINE 09/04/21
--- OUTSIDE RECORDS SUMMARY | 2025-08-20 14:28 | XMS_ITS | Encounter Summary ---
Author Organization [facility] Address [address] [place] [address] Care Team Providers Care Manager Corporate Name Role Phone Kacy Estrada MD Primary Care Provider [phone] Encounter Details Date Type Department Care Team (Late st Contact Info) Description 04/15/[address] [facility] Radiology [address] [place] [address] Neha Lopez MD [address] [facility] [address] [place] [address] Social History Tobacco Use Types Packs/Day Years Used Date Smoking Tobacco: Every Day Sex and Gender Information Value Date Recorded Sex Assigned at Not on file Legal Sex Male 7:32 PM PULP GRINDER AND BLENDER Gender Identity Not on file Sexual Orientation Not on file documented as of this encounter Plan of Treatment Not on file documented as of this encounter Visit Diagnoses Not on filedocumented in this encounter Care Teams Manager Corporate Relationship Specialty Start Date End Date Kacy Estrada MD [address] [place] [address] PCP - General Internal Medicine 03/04/21 documented as of this encounter
--- OUTSIDE RECORDS SUMMARY | 2025-08-20 14:28 | XMS_ITS | Clinical Summary ---
Author Organization [facility] Address [address] [place] [id number] Care Team Providers Care Combustion Analyst Name Role Phone Kacy Estrada MD Primary Care Provider [phone] Allergies No known active allergies Medications allopurinoL [...] on file Legal Sex Male 7:32 PM STERILE SUPPLY TECHNICIAN Gender Identity Not on file Sexual Orientation Not on file Obstetrics History Plan of Treatment Not on file Medical Devices Implanted Type Area Ultrasonic Solderer Device Identifier Shelf Expiration Date Model / Serial / Lot Hip Replacement Right: Hip Insurance [facility] CHOICE [facility] HMO/PPO Address: [place] [address] Care Teams Combustion Analyst Relationship Specialty Start Date End Date Kacy Estrada MD [address] [facility] [place] [address] PCP - General Internal Medicine 03/04/21
--- NOTE | 2025-08-20 15:22 | WPDGICN ---
Assessment and Plan Assessment and plan (1) Dysphagia: Qualifiers: Dysphagia type: esophageal phase Qualified Code(s): R13.19 - Other dysphagia Code(s): R13.10 - Dysphagia, unspecified Status: Acute Assessment and Plan: This patient's chronic dysphagia is attributed to a lower esophageal stricture. A significant barrier to care has been his lack proactive dilatation schedules or follow-up gastroenterology appointments. Given the clinical picture, the differential diagnosis is narrowed to peptic stricture or eosinophilic esophagitis. Given the chronicity of his problem, however, Guillen's esophagus with superimposed adenocarcinoma has to be ruled out as well. The immediate plan involves an EGD with biopsies and potential balloon dilatation tomorrow. Post-procedure, he will continue a PPI twice daily . Most importantly, the patient will be educated on and asked to commit to a structured, long-term dilatation schedule depending on the findings on EGD. GI Consult Note Consult date/time: 08/20/25 15:22 Reason for consult: Dysphagia HPI: Oscar Ag, a 65-year-old male, was admitted today with a two-week history of progressively worsening dysphagia to solids, now severely limiting him to liquids and soft foods like ice cream, which he even has difficulty with. He reports a significant, longstanding history of dysphagia for over 15 years. In the past few years, his history includes two emergency department visits for food bolus extraction. Two years ago, he had a third ED visit for food bolus impaction combined with hematemesis, leading to transfer to [facility] where an esophageal stent was placed for three weeks. The patient has not followed up with Gastroenterology since the stenting and reports living his normal life, despite the ongoing dysphagia. He has a history of chronic GERD which is treated with Omeeprazole 40 mg qD which he takes daily on an empty stomach in the mornings. He has lost a few pounds but has been able to keep his nutrition appropriately. Review of Systems Review of Systems: All systems reviewed & are unremarkable except as noted in HPI and below PMFSH Past Medical History Medical History Prostate cancer (03/2023) Esophageal stricture Gastroesophageal reflux disease Gout Asthma Hyperlipidemia Hypertension Surgical History Surgical History History of tonsillectomy History of meniscectomy of right knee History of prostate biopsy (03/2023) History of vein stripping History of total right hip arthroplasty (06/2018) History of cervical spinal surgery (02/2023) C5-C7 fusion. Family History Family History Mother Peripheral artery disease Hypertension Father Epilepsy Other Colon polyp Social History Social History Social History: Surrogate medical decision maker: Melissa Cisneros, mother. Code status: Full code. Smoking status: Never smoker Tobacco type: smokeless tobacco Smokeless tobacco user: chewing tobacco Second hand tobacco smoke exposure: No Additional smoking assessment comments: CHEWING TOBACCO DAYILY USE Alcohol intake: current Drinks per week: 30 Alcohol use details: BEER Substance use: current Substance use type: marijuana Other substance usage details: edibles Last use: 06/2023 Lack of Transportation: No Lack of Food: Never True Current Housing: I Have Housing Concerned About Future Housing: No Difficulty Paying Gas/Electric Bills: No Difficulty Paying for Meds: No Currently Unemployed: No Education: Decline to Answer Difficulty w/ Childcare or Family Care: No Living arrangements: alone Spiritual care concerns: No Meds Home Medications and Allergies Home Medications ?Medication ?Instructions ?Recorded ?Confirmed ?Type omeprazole 40 mg capsule,delayed 40 mg PO DAILY #30 caps 07/05/22 08/03/23 Rx release allopurinol 300 mg tablet 300 mg PO DAILY 03/22/23 08/03/23 History ergocalciferol (vitamin D2) 1,250 1,250 mcg PO WEEKLY 03/22/23 08/03/23 History mcg (50,000 unit) capsule metoprolol succinate 50 mg 25 mg PO DAILY 03/22/23 08/03/23 History tablet,extended release 24 hr tamsulosin 0.4 mg capsule 0.4 mg PO QAM 30 days #30 caps 06/10/23 08/03/23 Rx [place] Xl 2 tab-cap DAILY 07/22/23 08/03/23 History aspirin 81 mg tablet,delayed 81 mg PO DAILY 07/22/23 08/03/23 History release Held on 08/04/23. Instructions: Resume on 08/11/23. budesonide-formoterol HFA 160 2 puff inhalation Q12H PRN Wheezing 07/22/23 08/03/23 History mcg-4.5 mcg/actuation aerosol inhaler (Symbicort) folic acid 1 mg tablet 1 mg PO DAILY 07/22/23 08/03/23 History ibuprofen 200 mg capsule 400 mg PO BID PRN Pain 07/22/23 08/03/23 History Held on 08/04/23. Instructions: Resume on 08/11/23. pantoprazole 40 mg tablet,delayed 40 mg PO DAILY 07/22/23 08/03/23 History release simvastatin 20 mg tablet 20 mg DAILY 07/22/23 08/03/23 History cephalexin 500 mg capsule 500 mg PO Q12H #14 caps 08/04/23 Rx docusate sodium 100 mg tablet 100 mg PO BID #20 tabs 08/04/23 Rx hyoscyamine sulfate 0.125 mg 0.125 mg sublingual Q4H PRN 08/04/23 Rx disintegrating tablet (Anaspaz) Bladder Spasm 5 days #20 tabs Allergies Allergy/AdvReac Type Severity Reaction Status Date / Time No Known Allergies Allergy Verified 08/20/25 11:12 Vital Signs Vital Signs - 24 hr 08/20/25 10:15 08/20/25 11:10 08/20/25 11:32 Temperature 97.4 F L 98.0 F Pulse Rate 67 67 68 Respiratory Rate 17 14 20 Blood Pressure 135/73 129/74 112/66 Pulse Oximetry 100 99 98 Oxygen Delivery Room Air Exam Const: General: cooperative and healthy appearing Resp: Effort & Inspection: normal respiratory effort and able to speak in complete sentences Auscultation: clear to auscultation bilaterally Cardio: Rate: regular rate Rhythm: regular rhythm GI: Inspection: normal to inspection GI Palp: No No hepatosplenomegaly present Auscultation: normal bowel sounds Rectal Exam: deferred Skin: General skin exam: normal color Psych: Appearance: grossly normal Mental Status: mental status grossly normal Results Labs 08/20/25 12:26 08/20/25 12:26 Labs: Short CBC 08/20/25 Range/Units 12:26 WBC 6.8 (4.5-10.0) K/mm3 Hgb 14.7 (14.0-18.0) g/dL Hct 43.7 (42.0-52.0) % Plt Count 206 (150-375) k/mm3 BMP 08/20/25 12:26 Sodium 138 Potassium 4.4 Chloride 105 Carbon Dioxide 24 BUN 11 D Creatinine 0.77 Glucose 102 Calcium 8.9 Liver Function 08/20/25 Range/Units 12:26 Total Bilirubin 0.7 (0.2-1.3) mg/dL AST 36 (17-59) U/L ALT 42 (6-50) U/L Alkaline Phosphatase 70 (38-126) U/L Albumin 4.3 (3.5-5.1) g/dL
[2025-08-20 15:44] VITALS: BMI 33.1
[2025-08-20 15:45] VITALS: BP 121/71; PULSE 55; RESP 17; TEMP 36.3; O2SAT 99
[2025-08-20] MEDS: SODIUM CHLORIDE 0.9% IV 1,000 ML 125 ML IV CONT (20:14)
[2025-08-20 20:28] VITALS: PULSE 72; RESP 20; O2SAT 97
[2025-08-20 21:11] VITALS: BP 112/61; PULSE 54; RESP 16; TEMP 36.6; O2SAT 99
[2025-08-21] VITALS (7 sets, daily range): BP systolic 107–152; BP diastolic 60–86; PULSE 56–74; RESP 14–22; TEMP 36.5–36.7; O2SAT 97–100
[2025-08-21] MEDS: SODIUM CHLORIDE 0.9% IV 1,000 ML 125 ML IV CONT ×3 (04:08→22:32)
[2025-08-21 05:40] LABS: Hematocrit 39.5 % (42.0-52.0); Hemoglobin 13.5 g/dL (14.0-18.0); Immature Granulocyte Percent A 0.2 % (0-0.5); Lymphocytes Absolute Auto 2.36 K/mm3 (0.9-3.2); Mean Corpuscular HGB Conc 34.2 g/dl (32-36); Mean Corpuscular Hemoglobin 33.1 pg (26-34); Mean Corpuscular Volume 96.8 fl (80-100); Nucleated Red Blood Cells Absolute Auto 0.000 K/mm3 (0.0-0.012); Nucleated Red Blood Cells Perc 0.0 % (0.0-0.2); Platelet Count Result 186 k/mm3 (150-375); Red Blood Count 4.08 M/mm3 (4.6-6.20); White Blood Count 5.4 K/mm3 (4.5-10.0)
[2025-08-21 06:09] LABS: Anion Gap 7 mmol/L (4-12); Blood Urea Nitrogen 8 mg/dL (9-20); Calcium 8.4 mg/dL (8.4-10.2); Carbon Dioxide 23 mmol/L (22-30); Chloride 108 mmol/L (98-107); Estimated CRCL calculation 115 ml/min; Estimated Glomerular Filt Rate > 60; Glucose 95 mg/dL (65-110); Potassium 4.1 mmol/L (3.4-5.0); Sodium 138 mmol/L (137-145)
--- NOTE | 2025-08-21 08:55 | P.PNIM_ITS ---
Progress Note: A&P Assessment and Plan (1) Dysphagia: Qualifiers: Dysphagia type: esophageal phase Qualified Code(s): R13.19 - Other dysphagia Code(s): R13.10 - Dysphagia, unspecified Status: Acute Assessment and Plan: Patient present with this dysphagia for the past 2 weeks has worsened over the past 2 days. He is only able to get liquids down. PMH significant for dysphagia for about 15 years with a hx of esophageal stent in December 2023 that was placed for 3 weeks. Patient denies any previous dilatation of his esophagus. -GI consult -evidence of esophageal stricture please refer to full report and repeat EGD in 4 weeks -pantoprazole 40 mg daily (2) Hypertension: Qualifiers: Hypertension type: primary hypertension Qualified Code(s): I10 - Essential (primary) hypertension Code(s): I10 - Essential (primary) hypertension Status: Chronic Assessment and Plan: -currently stable -Can resume home meds after EGD (3) Alcohol abuse: Code(s): F10.10 - Alcohol abuse, uncomplicated Status: Acute Assessment and Plan: -Reports he is a daily beer drinker but denies history of withdrawal Plan GI prophylaxis: Pantoprazole 40 mg daily DVT prophylaxis: SCD's lines/drains: PIV Fluids: NS @ 150 mL/hr started in ED Code status: Full code Subjective Date/time seen: 08/21/25 08:55 Interval history: Patient underwent EGD and has evidence of esophageal stricture (please refer to full report). Patient complains of soreness after the EGD but feeling fine Review of Systems Review of Systems: All systems reviewed & are unremarkable except as noted in HPI and below Exam Narrative: GENERAL: Well-appearing, well-nourished, and in no acute distress. HEAD: Normocephalic, atraumatic. EYES: PERRLA ENT: Nares clear, no rhinorrhea or epistaxis. Mucous membranes moist. NECK: Supple. trachea midline CHEST: Clear to auscultation. No respiratory distress. HEART: RRR. No murmur heard. Normal peripheral pulses. ABDOMEN: Soft, nontender, nondistended, normal active bowel sounds. EXTREMITIES: Normal range of motion. No edema. SKIN: Warm, dry, no rash. NEURO: No focal deficits. A&Ox4. PSYCH: Normal mood and affect. Objective Data Vital Signs Vital Signs: Vital Signs - 24 hr 10/06/25 10:15 08/20/25 11:10 08/20/25 11:32 Temperature 97.4 F L 98.0 F Pulse Rate 67 67 68 Respiratory Rate 17 14 20 Blood Pressure 135/73 129/74 112/66 Pulse Oximetry 100 99 98 Oxygen Delivery Room Air Fraction of Inspired Oxygen 08/20/25 15:45 08/20/25 20:00 08/20/25 20:28 Temperature 97.3 F L Pulse Rate 55 L 72 Respiratory Rate 17 20 Blood Pressure 121/71 Pulse Oximetry 99 97 Oxygen Delivery Room Air Room Air Fraction of Inspired Oxygen 21 08/20/25 21:11 08/21/25 06:00 Temperature 97.9 F 97.9 F Pulse Rate 54 L 56 L Respiratory Rate 16 14 Blood Pressure 112/61 107/65 Pulse Oximetry 99 97 Oxygen Delivery Fraction of Inspired Oxygen Intake/Output Intake/Output: Intake & Output 08/18/25 08/19/25 08/20/25 08/21/25 23:59 23:59 23:59 23:59 Intake Total 910 987.5 Output Total 1500 Balance 910 -512.5 Meds/Results Medications: Active Medications Generic Name Dose Route Start Last Admin Trade Name Freq PRN Reason Stop Dose Admin Sodium Chloride 1,000 mls @ 125 mls/hr 08/20/25 13:40 08/21/25 04:08 Normal Saline Iv IV CONT 125 mls/hr .Q8H SUSHMA Administration Morphine Sulfate 2 mg 08/20/25 13:46 Morphine Sulfate (*Crx) 4 Mg/Ml Inj IV PUSH Q2H PRN Pain Rated 7-10 Ondansetron HCl 4 mg 08/20/25 13:39 Ondansetron Inj 4 Mg/2 Ml Vial IV PUSH Q4H PRN Nausea Radiology Results: ITS Impressions Chest X-Ray 08/20/25 12:38 Impression: No acute cardiopulmonary abnormality. Labs Labs: Laboratory Results - last 24 hr 08/20/25 08/21/25 12:26 05:35 WBC 6.8 5.4 RBC 4.50 L 4.08 L Hgb 14.7 13.5 L Hct 43.7 39.5 L MCV 97.1 96.8 MCH 32.7 33.1 MCHC 33.6 34.2 RDW 13.5 13.5 Plt Count 206 186 MPV 11.5 H 11.0 H Immature Gran % (Auto) 0.3 0.2 Neut % (Auto) 56.4 43.6 L Lymph % (Auto) 32.7 43.9 [place] % (Auto) 8.4 8.8 H Eos % (Auto) 1.6 2.8 Baso % (Auto) 0.6 0.7 Lymph # (Auto) 2.23 2.36 [place] # (Auto) 0.6 0.5 Eos # (Auto) 0.1 0.2 Baso # (Auto) 0.0 0.0 Abs Immat Gran (auto) 0.02 0.01 Absolute Neuts (auto) 3.8 2.3 Absolute Nucleated RBC 0.000 0.000 Nucleated RBC % 0.0 0.0 Sodium 138 138 Potassium 4.4 4.1 Chloride 105 108 H Carbon Dioxide 24 23 Anion Gap 9 7 BUN 11 D 8 L Creatinine 0.77 0.71 Estim Creat Clear Calc 107 115 Estimated GFR > 60 > 60 Glucose 102 95 Calcium 8.9 8.4 Total Bilirubin 0.7 AST 36 ALT 42 Alkaline Phosphatase 70 Total Protein 7.4 Albumin 4.3 Hospitalist MIPS Advance Care Plan I have confirmed that the patient's Advanced Care Plan is present, code status is documented, or surrogate decision maker is listed in patient medical record.: Yes Medication Reconciliation I have utilized all available resources to obtain, update and review the patients current medications (includes all prescriptions, OTC, herbals, cannabis, and nutritional supplements).: Yes
[2025-08-21] MEDS: LACTATED RINGERS 1,000 ML 150 ML IV CONT (13:46)
--- NOTE | 2025-08-21 14:17 | WPDANESEPPF ---
Anes - Initial Pre Proc Eval Procedure: Operation Date: 08/21/25 14:30 Proposed Procedures p Esophagogastroduodenoscopy - Fareed Christy MD Date/Time: 08/21/25 14:17 Surgeon: Kaveh Rios MD Pre Op Diagnosis: Dysphagia Patient Data Age: 65 Gender: M Height: 1.83 m Weight: 110.8 kg Last Vital Signs Temp 36.5 C 08/21/25 13:35 Pulse 64 08/21/25 13:35 Resp 18 08/21/25 13:35 BP 152/70 H 08/21/25 13:35 Pulse Ox 100 08/21/25 13:35 O2 Del Method Room Air 08/21/25 13:35 FiO2 21 08/20/25 20:28 Allergies Allergy/AdvReac Type Severity Reaction Status Date / Time No Known Allergies Allergy Verified 08/21/25 13:44 Home Medications ?Medication ?Instructions ?Recorded ?Confirmed ?Type omeprazole 40 mg capsule,delayed 40 mg PO DAILY #30 caps 07/05/22 08/20/25 Rx release allopurinol 300 mg tablet 300 mg PO DAILY 03/22/23 08/20/25 History metoprolol succinate 50 mg 25 mg PO DAILY 03/22/23 08/20/25 History tablet,extended release 24 hr folic acid 1 mg tablet 1 mg PO DAILY 07/22/23 08/20/25 History simvastatin 20 mg tablet 20 mg PO DAILY 07/22/23 08/20/25 History lisinopril 10 mg tablet 10 mg PO DAILY 08/20/25 08/20/25 History meloxicam 7.5 mg tablet 7.5 mg PO DAILY 08/20/25 08/20/25 History Laboratory Tests 08/21/25 05:35 WBC 5.4 K/mm3 (4.5-10.0) RBC 4.08 L M/mm3 (4.6-6.20) Hgb 13.5 L g/dL (14.0-18.0) Hct 39.5 L % (42.0-52.0) MCV 96.8 fl (80-100) MCH 33.1 pg (26-34) MCHC 34.2 g/dl (32-36) RDW 13.5 % (11.5-14.5) Plt Count 186 k/mm3 (150-375) MPV 11.0 H fl (7.4-10.4) Immature Gran % (Auto) 0.2 % (0-0.5) Neut % (Auto) 43.6 L % (45.5-73.1) Lymph % (Auto) 43.9 % (18.3-44.2) [place] % (Auto) 8.8 H % (2.6-8.5) Eos % (Auto) 2.8 % (0-4.4) Baso % (Auto) 0.7 % (0.2-1.2) Lymph # (Auto) 2.36 K/mm3 (0.9-3.2) [place] # (Auto) 0.5 K/mm3 (0.1-0.6) Eos # (Auto) 0.2 K/mm3 (0-0.3) Baso # (Auto) 0.0 K/mm3 (0.0-0.1) Abs Immat Gran (auto) 0.01 K/mm3 (0.00-0.031) Absolute Neuts (auto) 2.3 K/mm3 (1.3-6.7) Absolute Nucleated RBC 0.000 K/mm3 (0.0-0.012) Nucleated RBC % 0.0 % (0.0-0.2) Sodium 138 mmol/L (137-145) Potassium 4.1 mmol/L (3.4-5.0) Chloride 108 H mmol/L (98-107) Carbon Dioxide 23 mmol/L (22-30) Anion Gap 7 mmol/L (4-12) BUN 8 L mg/dL (9-20) Creatinine 0.71 mg/dL (0.7-1.3) Estim Creat Clear Calc 115 ml/min Estimated GFR > 60 (59 - ) Glucose 95 mg/dL (65-110) Calcium 8.4 mg/dL (8.4-10.2) Patient hx anesthesia problems: none Family hx anesthesia problems: none Results Review: All pre-operative results and documents have been reviewed as part of the pre-operative evaluation. [facility] Past Medical History Medical History Prostate cancer (03/2023) Esophageal stricture Gastroesophageal reflux disease Gout Asthma Hyperlipidemia Hypertension Surgical History Surgical History History of tonsillectomy History of meniscectomy of right knee History of prostate biopsy (03/2023) History of vein stripping History of total right hip arthroplasty (06/2018) History of cervical spinal surgery (02/2023) C5-C7 fusion. Family History Family History Mother Peripheral artery disease Hypertension Father Epilepsy Other Colon polyp Social History Social History Social History: Surrogate medical decision maker: Melissa Cisneros, mother. Code status: Full code. Smoking status: Never smoker Smokeless tobacco user: chewing tobacco Second hand tobacco smoke exposure: No Additional smoking assessment comments: CHEWING TOBACCO DAYILY USE Alcohol intake: current Drinks per week: 30 Alcohol use details: BEER Substance use: current Substance use type: marijuana Other substance usage details: edibles Lack of Transportation: No Lack of Food: Never True Current Housing: I Have Housing Concerned About Future Housing: No Difficulty Paying Gas/Electric Bills: No Difficulty Paying for Meds: No Currently Unemployed: No Education: Decline to Answer Difficulty w/ Childcare or Family Care: No Living arrangements: alone Spiritual care concerns: No Anes - Eval Final PreProcedure Day of Procedure 08/21/25 14:17 Patient weight: obese Heart: regular rate and rhythm Lungs: clear to auscultation Airway: Mallampati scale class II Neurological: alert and oriented Last oral intake: >/= 8 hours ASA classification: III Emergent: no Anesthetic plan: proceed Anesthesia type and monitoring: general GIVS and standard monitoring Results Review: All pre-operative results and documents have been reviewed as part of the pre-operative evaluation. Informed Consent: The patient's anesthetic plan and its attendant risks and benefits were discussed with the patient/family/POA. Questions were solicited and answers provided to the satisfaction of the patient/family/POA.
--- NOTE | 2025-08-21 15:10 | S_PTH ---
PATIENT: Oscar Ag LOC: [id number] U#:[id number] AGE/SX: 65/M ROOM: 307 RE08/20/[address]: Rodrigue charles Oca, MD : [id number] BED: 02 DIS: 08/22/2025 SPEC #: [id number] RECD: 08/22/25 11:20 STATUS: JUSTIN KRUGER #: [id number] SCARLETT: 08/21/25 15:[address]: Fareed Christy DEPT: [facility] Surgical RECD BY: India Lynch ENTERED: 08/22/25 11:21 SP TYPE: Surgical OTHR DR: Kacy Estrada, MD Kaveh Rios MD Tissues: A - Gastric Polyp B - Esophageal Biopsy Procedures: Pas with Diastase Hematoxylin and Eosin Stain Gross and Microscopic Level 4
--- NOTE | 2025-08-21 15:37 | SUR.PHASEII ---
Pt reports pain in throat(soreness) and chest in recovery. Dr. Christy notified and at bedside and states pain most likely due to procedure. No new orders received.
--- NOTE | 2025-08-21 15:51 | P.PNGI_ITS ---
Progress Note: A&P Assessment and Plan (1) Esophageal stricture: Code(s): K22.2 - Esophageal obstruction Status: Acute Assessment and Plan: The patient has a benign appearing But critical esophageal stricture that needed balloon dilatation before being able to pass the scope. There is a large hiatal hernia explaining GERD and chronic scarring of the esophagus. Esophageal biopsies were taken to rule out eosinophilic esophagitis. The patient can be offered clear liquids tonight and if stable can be discharged tomorrow. It is important to schedule him for another EGD in 4 weeks and maximize PPI therapy (Omeprazole 40 mg biD for now) . More importantly, he should be advised to abstain from alcohol drinking and smoking. Subjective Date/time seen: 08/21/25 15:51 Interval history: See EGD report. Objective Data Vital Signs Vital Signs: Vital Signs - 24 hr 08/20/25 20:00 08/20/25 20:28 08/20/25 21:11 Temperature 97.9 F Pulse Rate 72 54 L Respiratory Rate 20 16 Blood Pressure 112/61 Pulse Oximetry 97 99 Oxygen Delivery Room Air Room Air Fraction of Inspired Oxygen 21 08/21/25 06:00 08/21/25 08:00 08/21/25 13:35 Temperature 97.9 F 97.7 F Pulse Rate 56 L 64 Respiratory Rate 14 18 Blood Pressure 107/65 152/70 H Pulse Oximetry 97 100 Oxygen Delivery Room Air Room Air Fraction of Inspired Oxygen 08/21/25 15:15 08/21/25 15:25 08/21/25 15:35 Temperature Pulse Rate 69 65 57 L Respiratory Rate 18 22 H 15 Blood Pressure 135/86 136/79 136/68 Pulse Oximetry 100 100 100 Oxygen Delivery Room Air Room Air Room Air Fraction of Inspired Oxygen Intake/Output Intake/Output: Intake & Output 08/18/25 08/19/25 08/20/25 08/21/25 23:59 23:59 23:59 23:59 Intake Total 910 2179.2 Output Total 1500 Balance 910 679.2 Meds/Results Medications: Active Medications Generic Name Dose Route Start Last Admin Trade Name Freq PRN Reason Stop Dose Admin Allopurinol 300 mg 08/22/25 09:00 Allopurinol 300 Mg Tablet PO DAILY SUSHMA Folic Acid 1 mg 08/22/25 09:00 Folic Acid 1 Mg Tablet PO DAILY SUSHMA Sodium Chloride 1,000 mls @ 125 mls/hr 08/20/25 13:40 08/21/25 12:04 Normal Saline Iv IV CONT 125 mls/hr .Q8H [facility] Administration Lisinopril 10 mg 08/22/25 09:00 Lisinopril 10 Mg Tablet PO DAILY [facility] Meloxicam 7.5 mg 08/22/25 09:00 Meloxicam 7.5 Mg Tablet PO DAILY [facility] Metoprolol Succinate 25 mg 08/22/25 09:00 Metoprolol Succinate Ext Rel 25 Mg Tabcr PO DAILY [facility] Morphine Sulfate 2 mg 08/20/25 13:46 Morphine Sulfate (*Crx) 4 Mg/Ml Inj IV PUSH Q2H PRN Pain Rated 7-10 Ondansetron HCl 4 mg 08/20/25 13:39 Ondansetron Inj 4 Mg/2 Ml Vial IV PUSH Q4H PRN Nausea Pantoprazole Sodium 40 mg 08/22/25 09:00 Pantoprazole 40 Mg Tablet PO Q12HR [facility] Simvastatin 20 mg 08/22/25 09:00 Simvastatin 20 Mg Tablet PO DAILY [facility] Radiology Results: ITS Impressions Chest X-Ray 08/20/25 12:38 Impression: No acute cardiopulmonary abnormality. Labs Labs: Laboratory Results - last 24 hr 08/21/25 05:35 WBC 5.4 RBC 4.08 L Hgb 13.5 L Hct 39.5 L MCV 96.8 MCH 33.1 MCHC 34.2 RDW 13.5 Plt Count 186 MPV 11.0 H Immature Gran % (Auto) 0.2 Neut % (Auto) 43.6 L Lymph % (Auto) 43.9 [place] % (Auto) 8.8 H Eos % (Auto) 2.8 Baso % (Auto) 0.7 Lymph # (Auto) 2.36 [place] # (Auto) 0.5 Eos # (Auto) 0.2 Baso # (Auto) 0.0 Abs Immat Gran (auto) 0.01 Absolute Neuts (auto) 2.3 Absolute Nucleated RBC 0.000 Nucleated RBC % 0.0 Sodium 138 Potassium 4.1 Chloride 108 H Carbon Dioxide 23 Anion Gap 7 BUN 8 L Creatinine 0.71 Estim Creat Clear Calc 115 Estimated GFR > 60 Glucose 95 Calcium 8.4
[2025-08-21] MEDS: CALCIUM CARBONATE (TUMS) 500 MG (200 MG ELEMENTAL) PO (17:58)
[2025-08-22 05:36] LABS: Hematocrit 37.5 % (42.0-52.0); Hemoglobin 12.9 g/dL (14.0-18.0); Mean Corpuscular HGB Conc 34.4 g/dl (32-36); Mean Corpuscular Hemoglobin 33.2 pg (26-34); Mean Corpuscular Volume 96.4 fl (80-100); Platelet Count Result 169 k/mm3 (150-375); Red Blood Count 3.89 M/mm3 (4.6-6.20); White Blood Count 6.6 K/mm3 (4.5-10.0)
[2025-08-22 06:00] VITALS: BP 129/69; PULSE 58; RESP 14; TEMP 36.6; O2SAT 98
[2025-08-22 06:59] LABS: Alanine Aminotransferase 33 U/L (6-50); Albumin Level 3.6 g/dL (3.5-5.1); Alkaline Phosphatase 58 U/L (38-126); Anion Gap 6 mmol/L (4-12); Aspartate Amino Transferase 25 U/L (17-59); Bilirubin,Total 0.8 mg/dL (0.2-1.3); Blood Urea Nitrogen 6 mg/dL (9-20); Calcium 8.6 mg/dL (8.4-10.2); Carbon Dioxide 24 mmol/L (22-30); Chloride 109 mmol/L (98-107); Estimated CRCL calculation 112 ml/min; Estimated Glomerular Filt Rate > 60; Glucose 98 mg/dL (65-110); Potassium 4.0 mmol/L (3.4-5.0); Sodium 139 mmol/L (137-145); Total Protein 6.2 g/dL (6.3-8.2)
--- NOTE | 2025-08-22 07:21 | WPDGIPROGNO ---
Progress Note: A&P Assessment and Plan (1) Esophageal stricture: Code(s): K22.2 - Esophageal obstruction Status: Acute Assessment and Plan: The patient did well after esophageal dilatation. He can be discharged home today on omeprazole 40 mg b.i.d. ( high-dose therapy for severe GERD) and will schedule a follow-up EGD in 4 weeks to continue dilation protocol. In the meantime he is instructed not to advance diet further than liquid or puree to avoid food impaction. Subjective Date/time seen: 08/22/25 07:21 Objective Data Vital Signs Vital Signs: Vital Signs - 24 hr 08/21/25 08:00 08/21/25 13:35 08/21/25 14:00 Temperature 97.7 F 97.9 F Pulse Rate 64 74 Respiratory Rate 18 16 Blood Pressure 152/70 H 142/66 H Pulse Oximetry 100 99 Oxygen Delivery Room Air Room Air 08/21/25 15:15 08/21/25 15:25 08/21/25 15:35 Temperature Pulse Rate 69 65 57 L Respiratory Rate 18 22 H 15 Blood Pressure 135/86 136/79 136/68 Pulse Oximetry 100 100 100 Oxygen Delivery Room Air Room Air Room Air 08/21/25 21:40 08/21/25 22:00 08/22/25 06:00 Temperature 98.1 F 97.9 F Pulse Rate 58 L 58 L Respiratory Rate 14 14 Blood Pressure 134/60 129/69 Pulse Oximetry 98 98 Oxygen Delivery Room Air Intake/Output Intake/Output: Intake & Output 08/19/25 08/20/25 08/21/25 08/22/25 23:59 23:59 23:59 23:59 Intake Total 910 4429.2 480 Output Total 2700 Balance 910 1729.2 480 Meds/Results Medications: Active Medications Generic Name Dose Route Start Last Admin Trade Name Freq PRN Reason Stop Dose Admin Allopurinol 300 mg 08/22/25 09:00 Allopurinol 300 Mg Tablet PO DAILY SUSHMA Calcium Carbonate 200 mg 08/21/25 17:48 08/21/25 17:58 Calcium Carbonate (Tums) 500 Mg (200 Mg Elemental) PO 200 mg Q6H PRN Administration Indigestion Folic Acid 1 mg 08/22/25 09:00 Folic Acid 1 Mg Tablet PO DAILY SUSHMA Sodium Chloride 1,000 mls @ 125 mls/hr 08/20/25 13:40 08/21/25 22:32 Normal Saline Iv IV CONT 125 mls/hr .Q8H [facility] Administration Lisinopril 10 mg 08/22/25 09:00 Lisinopril 10 Mg Tablet PO DAILY [facility] Meloxicam 7.5 mg 08/22/25 09:00 Meloxicam 7.5 Mg Tablet PO DAILY [facility] Metoprolol Succinate 25 mg 08/22/25 09:00 Metoprolol Succinate Ext Rel 25 Mg Tabcr PO DAILY [facility] Morphine Sulfate 2 mg 08/20/25 13:46 Morphine Sulfate (*Crx) 4 Mg/Ml Inj IV PUSH Q2H PRN Pain Rated 7-10 Ondansetron HCl 4 mg 08/20/25 13:39 Ondansetron Inj 4 Mg/2 Ml Vial IV PUSH Q4H PRN Nausea Pantoprazole Sodium 40 mg 08/22/25 09:00 Pantoprazole 40 Mg Tablet PO Q12HR [facility] Simvastatin 20 mg 08/22/25 09:00 Simvastatin 20 Mg Tablet PO DAILY [facility] Radiology Results: ITS Impressions Chest X-Ray 08/20/25 12:38 Impression: No acute cardiopulmonary abnormality. Labs Labs: Laboratory Results - last 24 hr 08/22/25 08/22/25 05:31 06:28 WBC 6.6 RBC 3.89 L Hgb 12.9 L Hct 37.5 L MCV 96.4 MCH 33.2 MCHC 34.4 RDW 13.4 Plt Count 169 MPV 11.0 H Sodium 139 Potassium 4.0 Chloride 109 H Carbon Dioxide 24 Anion Gap 6 BUN 6 L Creatinine 0.73 Estim Creat Clear Calc 112 Estimated GFR > 60 Glucose 98 Calcium 8.6 Total Bilirubin 0.8 AST 25 ALT 33 Alkaline Phosphatase 58 Total Protein 6.2 L Albumin 3.6
[2025-08-22] MEDS: SIMVASTATIN 20 MG TABLET PO (08:25)
[2025-08-22 08:26] VITALS: PULSE 58
[2025-08-22] MEDS: PANTOPRAZOLE 40 MG TABLET PO (08:26)
[2025-08-22] MEDS: MELOXICAM 7.5 MG TABLET PO (08:26)
[2025-08-22] MEDS: METOPROLOL SUCCINATE EXT REL 25 MG TABCR PO (08:26)
[2025-08-22] MEDS: FOLIC ACID 1 MG TABLET PO (08:26)
[2025-08-22] MEDS: ALBUTEROL SULFATE (*SP) AEROSOL 1 PUFF 2 PUFF INHALATION (08:40)
[2025-08-22 08:41] VITALS: PULSE 79; RESP 20; O2SAT 93
--- NOTE | 2025-08-22 11:11 | P.DS_ITS ---
DS: Admitting Diagnosis Discharge Date 08/22/2025 Admitting Diagnosis Esophageal stricture DS: Discharge Diagnosis Discharge Diagnosis (1) Esophageal stricture: Code(s): K22.2 - Esophageal obstruction Status: Acute (2) Dysphagia: Qualifiers: Dysphagia type: esophageal phase Qualified Code(s): R13.19 - Other dysphagia Code(s): R13.10 - Dysphagia, unspecified Status: Acute Plan Esophageal stricture S/p EGD by GI, results as below, balloon dilation performed which improved symptoms follow-up in the GI clinic on discharge repeat EGD in 4 weeks avoid trigger foods and alcohol to be discharged on her omeprazole 40 mg b.i.d. DS: Summary Hospital Course Hospital Course: The patient presents with dysphagia for 2 weeks and had worsened today prior to admission. He only was able to tolerate liquids at the time of admission. He has established history of dysphagia in the past about 15 years ago with history of esophageal stent placed December 2023 present for 3 weeks. he was seen by Gastroenterology who performed EGD which had findings of severe benign appearing intrinsic peptic stenosis of the distal esophagus about 34 cm from incisors. Moderate amount of retained food was noted in the distal esophagus proximal to the stricture which was removed. Biopsies were taken to rule out eosinophilic esophagitis. A wire guided balloon dilation was performed thereafter for 1 mi nute allowing the scope to be passed. Hiatal hernia was noted at the gastroesophageal junction and a single 4 mm sessile polyp was observed in the antrum which appeared benign. This was excised. Moderate diffuse chronic superficial gastritis in the body and the antrum of the stomach were also noted, both of which were nonerosive. Recommendations by GI were to repeat EGD in 4 weeks with follow-up appointment in the clinic to avoid triggering foods for GERD. Patient is a regular beer drinker and was advised to stop at this time. He was transitioned to clear liquids on the night of the EGD and tolerated oral this morning as well. He was seen on the date of discharge, stable, improved, able to tolerate foods such as Jell-O and pudding. patient is aware to follow with GI, and has information at bedside in regards to making appointment. Status at Discharge Cognitive/behavioral status at discharge: Stable Time Spent with Patient Time attestation: Total time spent providing and/or coordinating discharge services: Exam Narrative: GENERAL: Well-appearing, well-nourished, and in no acute distress. HEAD: Normocephalic, atraumatic. EYES: PERRLA ENT: Nares clear, no rhinorrhea or epistaxis. Mucous membranes moist. NECK: Supple. trachea midline CHEST: Clear to auscultation. No respiratory distress. HEART: RRR. No murmur heard. Normal peripheral pulses. ABDOMEN: Soft, nontender, nondistended, normal active bowel sounds. EXTREMITIES: Normal range of motion. No edema. SKIN: Warm, dry, no rash. NEURO: No focal deficits. A&Ox4. PSYCH: Normal mood and affect. DS: Data Data Completed and Pending Pending studies at discharge: Pending at discharge 08/21/25 15:10 Surgical [PTH] Routine Labs on day of discharge: Labs from last 24 hours 08/22/25 08/22/25 06:28 05:31 WBC 6.6 RBC 3.89 L Hgb 12.9 L Hct 37.5 L MCV 96.4 MCH 33.2 MCHC 34.4 RDW 13.4 Plt Count 169 MPV 11.0 H Sodium 139 Potassium 4.0 Chloride 109 H Carbon Dioxide 24 Anion Gap 6 BUN 6 L Creatinine 0.73 Estim Creat Clear Calc 112 Estimated GFR > 60 Glucose 98 Calcium 8.6 Total Bilirubin 0.8 AST 25 ALT 33 Alkaline Phosphatase 58 Total Protein 6.2 L Albumin 3.6 Discharge Plan Discharge Attending physician on discharge: Rodrigue Ghosh Oca Discharging Clinician: Rodrigue Ghosh Oca Patient Disposition: Home Activity: as tolerated Diet: as tolerated and other - see discharge instructions Discharge Instructions: Per Dr. Christy: liquid or puree diet only to avoid food impaction Patient Instructions: Antibiotic Form Patient Language: Belarusian Stand Alone Forms: General Discharge Information Follow-up/Referrals: Gastroenterology [facility] [Provider Group, Gastroenterology] Discharge Medications: Continued omeprazole 40 mg capsule,delayed release(DR/EC) 40 mg PO DAILY Qty: 30 0RF metoprolol succinate 50 mg Tablet Extended Release 24 Hr 25 mg PO DAILY allopurinol 300 mg Tablet 300 mg PO DAILY simvastatin 20 mg tablet 20 mg PO DAILY folic acid 1 mg Tablet 1 mg PO DAILY lisinopril 10 mg tablet 10 mg PO DAILY meloxicam 7.5 mg tablet 7.5 mg PO DAILY albuterol sulfate 90 mcg/actuation HFA aerosol inhaler 2 puff INHALATION Q6H PRN (Reason: shortness of breath or wheezing) Date of admission: 08/20/25 13:39 Primary Care Provider: NatalieKacy Admitting Provider: Kaveh Rios Attending physician on admission: Kaveh Rios Condition: Stable Hospitalist MIPS Heart Failure (Exclusion) Patient has history of Heart Transplant or Left Ventricular Assistive Device?: No IF YES, STOP HERE Heart Failure (Qualifier) Patient has current or prior documentation of LVEF less than or equal to 40%, or mod/servere depressed LVSF?: No IF NO, STOP HERE
== END 2025-08-22 11:55 | disposition home or self-care (01) | DRG 392 ==
LOC: ANHED 13:33 → ANH3MEDSUR 14:09
PROVIDERS: General Practice; Internal Medicine Gastroenterology; Nurse Practitioner Adult Health; Admitting Provider Internal Medicine; Emergency Provider Family Medicine; PCP Internal Medicine; Visit Provider Student in an Organized Health Care Education/Training Program
PROC: 0DJ08ZZ Inspection of Upper Intestinal Tract, Via Natural or Artificial Opening Endoscopic (ICD-10-PCS; principal; 2025-08-21 14:30)
DX: K22.2 Esophageal obstruction (principal); K44.0 Diaphragmatic hernia with obstruction, without gangrene; K92.0 Hematemesis; K21.9 Gastro-esophageal reflux disease without esophagitis; K29.30 Chronic superficial gastritis without bleeding; I10 Essential (primary) hypertension; E78.5 Hyperlipidemia, unspecified; R07.89 Other chest pain; R00.0 Tachycardia, unspecified; R06.82 Tachypnea, not elsewhere classified; T18.128A Food in esophagus causing other injury, initial encounter; F17.220 Nicotine dependence, chewing tobacco, uncomplicated; F10.90 Alcohol use, unspecified, uncomplicated; F12.91 Cannabis use, unspecified, in remission; Z96.641 Presence of right artificial hip joint; Z91.199 Patient's noncompliance with other medical treatment and regimen due to unspecified reason; Z90.79 Acquired absence of other genital organ(s); Z85.46 Personal history of malignant neoplasm of prostate; Z87.19 Personal history of other diseases of the digestive system; Z79.82 Long term (current) use of aspirin; Z98.1 Arthrodesis status
CPT/HCPCS: 36415; 71045; 80048; 80053; 85025; 85027; 88305; 88312; 88313; 93005; 94640; 99285; A9270; C1726; J2003; J2704; J7030; J7120

== ENCOUNTER 2025-10-01 10:18 | Day surgery (SDC) | payer MEDICARE, MEDICAID, SELFPAY ==
[2025-08-22 14:50] VITALS: BMI 33.1
[2025-09-20 09:40] VITALS: BMI 30.4
--- NOTE | 2025-10-01 11:12 | P.PNAN_ITS ---
Anes - Initial Pre Proc Eval Procedure: Operation Date: 10/01/25 12:15 Proposed Procedures p Esophagogastroduodenoscopy - Fareed Christy MD Date/Time: 10/01/25 11:12 Surgeon: Fareed Christy MD Pre Op Diagnosis: Esophageal obstruction Patient Data Age: 65 Gender: M Height: 1.83 m Weight: 102 kg Allergies Allergy/AdvReac Type Severity Reaction Status Date / Time No Known Allergies Allergy Verified 10/01/25 11:24 Home Medications ?Medication ?Instructions ?Recorded ?Confirmed ?Type omeprazole 40 mg capsule,delayed 40 mg PO DAILY #30 ca ps 07/05/22 09/20/25 Rx release allopurinol 300 mg tablet 300 mg PO DAILY 03/22/2305/09 History metoprolol succinate 50 mg 25 mg PO DAILY 03/22/2305/09 History tablet,extended release 24 hr simvastatin 20 mg tablet 20 mg PO DAILY 07/22/2305/09 History lisinopril 10 mg tablet 10 mg PO DAILY 08/20/2505/09 History meloxicam 7.5 mg tablet 7.5 mg PO BID PRN pain 08/2009/20/25 History albuterol sulfate 90 mcg/actuation 2 puff inhalation Q 6H PRN 08/22/25 09/20/25 H istory aerosol inhaler shortness of breath or wheez ing Patient hx anesthesia problems: none Family hx anesthesia problems: none Results Review: All pre-operative results and documents have been reviewed as part of the pre- operative evaluation. [facility] Past Medical History Medical History Alcohol abuse Prostate cancer (03/2023) Esophageal stricture Gastroesophageal reflux disease Gout Asthma Hyperlipidemia Hypertension Surgical History Surgical History History of tonsillectomy History of meniscectomy of right knee History of prostate biopsy (03/2023) History of vein stripping History of total right hip arthroplasty (06/2018) History of cervical spinal surgery (02/2023) C5-C7 fusion. Family History Family History Mother Peripheral artery disease Hypertension Father Epilepsy Other Colon polyp Social History Social History Social History: Surrogate medical decision maker: Melissa Cisneros, mother. Code status: Full code. Smoking status: Heavy tobacco smoker Tobacco type: smokeless tobacco Smokeless tobacco user: chewing tobacco Second hand tobacco smoke exposure: No Additional smoking assessment comments: CHEWING TOBACCO DAYILY USE Alcohol intake: current Drinks per week: 30 Alcohol use details: beer Substance use: current Substance use type: marijuana Other substance usage details: edibles Lack of Transportation: No Lack of Food: Never True Current Housing: I Have Housing Concerned About Future Housing: No Difficulty Paying Gas/Electric Bills: No Difficulty Paying for Meds: No Currently Unemployed: No Education: Decline to Answer Difficulty w/ Childcare or Family Care: No Living arrangements: with family Spiritual care concerns: No Anes - Eval Final PreProcedure Day of Procedure 10/01/25 11:12 Heart: regular rate and rhythm Lungs: clear to auscultation Airway: Mallampati scale class III Neurological: alert and oriented Last oral intake: >/= 8 hours ASA classification: III Emergent: no Anesthetic plan: proceed Anesthesia type and monitoring: monitored anesthesia care Results Review: All pre-operative results and documents have been reviewed as part of the pre- operative evaluation. Informed Consent: The patient's anesthetic plan and its attendant risks and benefits were discussed with the patient/family/POA. Questions were solicited and answers provided to the satisfaction of the patient/family/POA.
[2025-10-01 11:25] VITALS: BP 145/72; PULSE 64; RESP 20; TEMP 36.8; O2SAT 100
[2025-10-01] MEDS: SIMETHICONE ORAL SUSPENSION 20 MG/0.3 ML 30 ML BOTTLE 1.8 ML PO (11:43)
[2025-10-01] MEDS: LACTATED RINGERS 1,000 ML 150 ML IV CONT (11:43)
--- NOTE | 2025-10-01 11:57 | PM.IMHP ---
H&P: HPI History of Present Illness Date/Time: 10/01/25 11:57 Chief Complaint: Dysphagia-esophageal stricture Narrative: last month patient is a an EGD with esophageal dilatation of a mid esophageal stricture. There was a small hiatal hernia. Biopsies ruled out EoE. The patient comes today for EGD and possible repeat dilatation, doing much better on pantoprazole 40 mg b.i.d.. with only occasional dysphagia episodes. Review of Systems Review of Systems: All systems reviewed & are unremarkable except as noted in HPI and below PMFSH Past Medical History Medical History Alcohol abuse Prostate cancer (03/2023) Esophageal stricture Gastroesophageal reflux disease Gout Asthma Hyperlipidemia Hypertension Surgical History Surgical History History of tonsillectomy History of meniscectomy of right knee History of prostate biopsy (03/2023) History of vein stripping History of total right hip arthroplasty (06/2018) History of cervical spinal surgery (02/2023) C5-C7 fusion. Family History Family History Mother Peripheral artery disease Hypertension Father Epilepsy Other Colon polyp Social History Social History Social History: Surrogate medical decision maker: Melissa Cisneros, mother. Code status: Full code. Smoking status: Heavy tobacco smoker Tobacco type: smokeless tobacco Smokeless tobacco user: chewing tobacco Second hand tobacco smoke exposure: No Additional smoking assessment comments: CHEWING TOBACCO DAYILY USE Alcohol intake: current Drinks per week: 30 Alcohol use details: beer Substance use: current Substance use type: marijuana Other substance usage details: edibles Lack of Transportation: No Lack of Food: Never True Current Housing: I Have Housing Concerned About Future Housing: No Difficulty Paying Gas/Electric Bills: No Difficulty Paying for Meds: No Currently Unemployed: No Education: Decline to Answer Difficulty w/ Childcare or Family Care: No Living arrangements: with family Spiritual care concerns: No Meds Home Medications and Allergies Home Medications ?Medication ?Instructions ?Recorded ?Confirmed ?Type omeprazole 40 mg capsule,delayed 40 mg PO DAILY #30 caps 07/05/22 10/01/25 Rx release allopurinol 300 mg tablet 300 mg PO DAILY 03/22/23 10/01/25 History metoprolol succinate 50 mg 25 mg PO DAILY 03/22/23 10/01/25 History tablet,extended release 24 hr simvastatin 20 mg tablet 20 mg PO DAILY 07/22/23 10/01/25 History lisinopril 10 mg tablet 10 mg PO DAILY 08/20/25 10/01/25 History meloxicam 7.5 mg tablet 7.5 mg PO BID PRN pain 08/20/25 10/01/25 History albuterol sulfate 90 mcg/actuation 2 puff inhalation Q6H PRN 08/22/25 10/01/25 History aerosol inhaler shortness of breath or wheezing Allergies Allergy/AdvReac Type Severity Reaction Status Date / Time No Known Allergies Allergy Verified 10/01/25 11:24 Vital Signs Vital Signs - 24 hr 10/01/25 11:25 Temperature 98.3 F Pulse Rate 64 Respiratory Rate 20 Blood Pressure 145/72 H Pulse Oximetry 100 Oxygen Delivery Room Air Exam Const: General: cooperative and healthy appearing Resp: Effort & Inspection: normal respiratory effort and able to speak in complete sentences Auscultation: clear to auscultation bilaterally Cardio: Rate: regular rate Rhythm: regular rhythm GI: Inspection: normal to inspection GI Palp: No No hepatosplenomegaly present Auscultation: normal bowel sounds Rectal Exam: deferred Skin: General skin exam: normal color Psych: Appearance: grossly normal Mental Status: mental status grossly normal Assessment and Plan Assessment and plan (1) Dysphagia: Qualifiers: Dysphagia type: esophageal phase Qualified Code(s): R13.19 - Other dysphagia Code(s): R13.10 - Dysphagia, unspecified Status: Acute Assessment and Plan: The patient is deemed a good candidate for the procedure. Consent signed. Will proceed. (2) Esophageal stricture: Code(s): K22.2 - Esophageal obstruction Status: Acute
[2025-10-01 12:24] VITALS: BP 132/76; PULSE 64; RESP 18; O2SAT 100
[2025-10-01 12:34] VITALS: BP 125/73; PULSE 63; RESP 18; O2SAT 99
--- NOTE | 2025-10-01 12:39 | WPDANESPN ---
Anes - Prog Note Post-Op Date/Time: 10/01/25 12:39 Cardiovascular status: normal Respiratory status: normal Airway patency: baseline Mental status: baseline Post-Op hydration status: normal Vital Signs: Last Vital Signs Temp 36.8 C 10/01/25 11:25 Pulse 64 10/01/25 12:24 Resp 18 10/01/25 12:24 BP 132/76 10/01/25 12:24 Pulse Ox 100 10/01/25 12:24 O2 Del Method Room Air 10/01/25 12:24 Pain Score (VAS): 0 I/O: Intake & Output 09/30/25 10/01/25 10/01/25 23:59 07:59 15:59 Intake Total 0 Balance 0 Post-procedural complaints: none Patient Feedback: Patient satisfied with anesthetic care.
[2025-10-01 12:44] VITALS: BP 118/60; PULSE 58; RESP 18; O2SAT 100
== END 2025-10-01 13:14 | disposition home or self-care (01) ==
PROVIDERS: Referring Provider Internal Medicine Gastroenterology; Visit Provider Internal Medicine Gastroenterology
PROC: 0DJ08ZZ Inspection of Upper Intestinal Tract, Via Natural or Artificial Opening Endoscopic (ICD-10-PCS; CPT 43249; principal; 2025-10-01 12:15)
DX: K22.2 Esophageal obstruction (principal); K29.70 Gastritis, unspecified, without bleeding; K44.9 Diaphragmatic hernia without obstruction or gangrene
CPT/HCPCS: 43249